=== PATIENT | male | born 1960 | race Caucasian/White ===

== ENCOUNTER 2018-01-04 12:39 | Inpatient (IN) | payer MEDICARE ==
[2018-01-04] VITALS (24 sets, daily range): BP systolic 54–154; BP diastolic 00–103
[~2018-01-04] VITALS: Ht 152.4 cm; Wt 77.6 kg
[2018-01-04] MEDS ORDERED: ADDERALL 20 MG20 M1 PO (12:49)
[2018-01-04] MEDS ORDERED: ABILIFY30 MG PO (12:49)
[2018-01-04] MEDS ORDERED: FISH OIL 1,001000 M2 PO (12:50)
[2018-01-04] MEDS ORDERED: GLIPIZIDE 10 MG10 MG PO (12:50)
[2018-01-04] MEDS ORDERED: METFORMIN HCL500 MG PO (12:51)
[2018-01-04 13:49] LABS: MCH 32.2 pg (26.0-34.0); MCHC 29.2 g/dL (28.0-37.0); MCV 110.2 fL (80.0-100.0); MPV 10.1 fl. (7.2-11.1); NUCLEATED RBCS 1 /100WBC; PLATELET COUNT* 423 thou/uL (150-400)
[2018-01-04 13:57] LABS: BE -23.9 mmol/L (-2 to +3); PCO2 33.7 mmHg (35.0-45.0); pH 6.905 (7.340-7.450)
[2018-01-04 13:58] LABS: HCO3 6.5 mmol/L (22.0-26.0); PO2 220.4 mmHg (75.0-100.0)
[2018-01-04 13:58] LABS: APTT 32.7 Seconds (25.0-31.3); INR 1.8; PROTIME 17.4 Seconds (9.20-11.50)
[2018-01-04 14:02] LABS: HEMOGLOBIN 4.8 gm/dL (14.0-18.0); WBC 67.2 thou/uL (4.0-11.0)
[2018-01-04 14:03] LABS: HEMATOCRIT 16.5 % (42.0-52.0)
[2018-01-04 14:10] LABS: CALCIUM 8.5 mg/dL (8.5-10.1)
[2018-01-04 14:11] LABS: POTASSIUM 5.7 mmol/L (3.5-5.1)
[2018-01-04 14:16] LABS: CK-MB MASS 4.2 ng/mL (<0.5-3.6); TOTAL BILIRUBIN 6.5 mg/dL (<0.1-1.0); TOTAL PROTEIN 6.4 g/dL (6.4-8.2)
[2018-01-04 14:21] LABS: TROPONIN-I LEVEL 2.11 ng/mL (<0.06)
[2018-01-04 14:31] LABS: ABSOLUTE EOSINOPHILS 0.7 thou/uL (0.0-0.7); ABSOLUTE LYMPHOCYTES 19.5 thou/uL (0.8-5.3); ABSOLUTE MONOCYTES 2.7 thou/uL (0.0-1.2); ABSOLUTE NEUTROPHILS 44.4 thou/uL (1.6-8.1); METAMYELOCYTES 10 %; MYELOCYTES 5 %; PLATELET ESTIMATE ADEQUATE
[2018-01-04 14:32] LABS: ACETAMINOPHEN < 2 ug/mL (10-30); ALCOHOL < 10 mg/dL (<10); HYPOCHROMASIA 1+; POLYCHROMASIA 1+; SALICYLATE < 2.8 mg/dL (2.8-20.0)
[2018-01-04 14:33] LABS: MACROCYTES 2+
[2018-01-04 14:36] LABS: ANISOCYTOSIS 2+
[2018-01-04 14:46] LABS: URINE BLOOD 3+ (Negative); URINE CLARITY CLOUDY; URINE COLOR BROWN; URINE GLUCOSE-RANDOM 3+ (Negative); URINE KETONES 1+ (Negative); URINE LEUKOCYTES-REFLEX NEGATIVE (Negative); URINE NITRITE-REFLEX NEGATIVE (Negative); URINE PROTEIN 2+ (Negative)
[2018-01-04 14:49] LABS: ICTOTEST (BILI CONFIRMATORY) Negative (Negative); URINE BILIRUBIN 1+ (Negative)
[2018-01-04 14:57] LABS: BACTERIA-REFLEX 1-9 Few /HPF (None Seen); SQUAMOUS 0-3 Few /LPF (0-3); URINE WBC-REFLEX 0-5 Rare /HPF (0-5)
[2018-01-04 14:58] LABS: AMORPHOUS URATES Many /LPF (None Seen); CASTS None Seen /LPF (None Seen)
[2018-01-04 15:48] LABS: BE -18.2 mmol/L (-2 to +3); PCO2 24.9 mmHg (35.0-45.0); PO2 > 488.8 mmHg (75.0-100.0); pH 7.158 (7.340-7.450)
[2018-01-04 15:49] LABS: HCO3 8.6 mmol/L (22.0-26.0)
--- NOTE | 2018-01-04 16:33 | EKG ---
[place] [address] ELECTROCARDIOGRAM REPORT Name: SAMIR BAIG Room: [address] IN [facility].#: [id number] Admission: 01/04/18 Attend Phys: Yuan Florian MD Discharge: Date of : 60 Report #: [id number] THIS REPORT FOR: //name// [facility] ED Test Date: 2018-01-04 Test Time: 13:57:23 Pat Name: SAMIR BAIG Department: Room: Gender: M [employer]: Willow POLANCO : 1960 Requested By: Vitaliy Amor Order Number: [id number] MD: Nate Velasco Measurements Intervals [place] Rate: 114 P: 74 [place]: 136 QRS: 11 QRSD: 76 T: 100 QT: 340 QTc: 469 Interpretive Statements Sinus tachycardia Extensive anterior infarct, acute (LAD) No previous ECG available for comparison Electronically Signed On 01-04-2018 16:33:04 CDT by Nate Velasco [email or web address] <ELECTRONICALLY SIGNED> By: Nate Velasco MD, [facility] 01/04/18 1633 1357 135 Nate Velasco MD, FACC /EPI
[2018-01-04 16:46] LABS: PHOSPHORUS* 7.3 mg/dL (2.5-4.9)
[2018-01-04 16:56] LABS: MAGNESIUM 2.3 mg/dL (1.8-2.4)
[2018-01-04 18:04] LABS: BE -20.4 mmol/L (-2 to +3); HCO3 7.5 mmol/L (22.0-26.0); PCO2 24.6 mmHg (35.0-45.0); PO2 251.8 mmHg (75.0-100.0)
[2018-01-04 18:16] LABS: CALCIUM 6.9 mg/dL (8.5-10.1)
[2018-01-04 18:19] LABS: POTASSIUM 3.9 mmol/L (3.5-5.1)
[2018-01-04 18:29] LABS: APTT 36.6 Seconds (25.0-31.3); INR 1.9; PROTIME 18.1 Seconds (9.20-11.50)
[2018-01-04 18:35] LABS: ALBUMIN 2.4 g/dL (3.4-5.0); MAGNESIUM 2.2 mg/dL (1.8-2.4); PHOSPHORUS* 7.6 mg/dL (2.5-4.9)
[2018-01-04 18:58] LABS: AMP/METHAMP POSITIVE (Negative); BARBITURATES Negative (Negative); BENZODIAZEPINES Negative (Negative); COCAINE Negative (Negative); METHADONE Negative (Negative); OPIATES Negative (Negative); PCP Negative (Negative); THC Negative (Negative)
[2018-01-04 20:48] LABS: MCHC 34.4 g/dL (28.0-37.0); MPV 8.9 fl. (7.2-11.1); RBC 1.72 mil/uL (4.50-6.00); RDW-CV 13.9 % (10.5-14.5)
[2018-01-04 20:51] LABS: MCV 92.9 fL (80.0-100.0); WBC 20.9 thou/uL (4.0-11.0)
[2018-01-04 20:57] LABS: HEMOGLOBIN 5.5 gm/dL (14.0-18.0)
[2018-01-04 21:02] LABS: CALCIUM 6.8 mg/dL (8.5-10.1); CREATININE 2.1 mg/dL (0.6-1.3)
[2018-01-04 21:05] LABS: ALBUMIN 2.3 g/dL (3.4-5.0); PHOSPHORUS* 2.6 mg/dL (2.5-4.9)
[2018-01-04 21:33] LABS: BE -5.2 mmol/L (-2 to +3); HCO3 17.6 mmol/L (22.0-26.0); PCO2 23.4 mmHg (35.0-45.0); pH 7.495 (7.340-7.450)
[2018-01-04 21:35] LABS: PO2 211.8 mmHg (75.0-100.0)
[2018-01-05] VITALS (41 sets, daily range): BP systolic 63–138; BP diastolic 38–80
[2018-01-05 02:44] LABS: MCH 31.4 pg (26.0-34.0); MCHC 34.8 g/dL (28.0-37.0); MCV 90.3 fL (80.0-100.0); MPV 8.7 fl. (7.2-11.1); RBC 1.9 mil/uL (4.50-6.00)
[2018-01-05 02:47] LABS: CALCIUM 6.7 mg/dL (8.5-10.1); CREATININE 2.3 mg/dL (0.6-1.3)
[2018-01-05 02:50] LABS: ANION GAP 11 mmol/L (7-16); BUN 79 mg/dL (7-18); CALCIUM 6.6 mg/dL (8.5-10.1); CHLORIDE 114 mmol/L (98-107); CO2 26 mmol/L (21-32); CREATININE 2.3 mg/dL (0.6-1.3); GLUCOSE 48 mg/dL (70-99); INR 1.8; PROTIME 17.8 Seconds (9.20-11.50); SODIUM 151 mmol/L (136-145)
[2018-01-05 02:51] LABS: ALBUMIN 2.4 g/dL (3.4-5.0); PHOSPHORUS* 0.5 mg/dL (2.5-4.9)
[2018-01-05 02:55] LABS: POTASSIUM 2.7 mmol/L (3.5-5.1)
[2018-01-05 03:03] LABS: ALBUMIN 2.2 g/dL (3.4-5.0); ALKALINE PHOSPHATASE 93 U/L (46-116); CHOLESTEROL 77 mg/dL (<200); HDL CHOLESTEROL 11 mg/dL (>40); HEMATOCRIT 17.1 % (42.0-52.0); LDL CHOLESTEROL 29 mg/dL (<100); MAGNESIUM 1.6 mg/dL (1.8-2.4); SGOT 468 U/L (15-37); SGPT 268 U/L (30-65); TOTAL BILIRUBIN 7.8 mg/dL (<0.1-1.0); TOTAL PROTEIN 4.7 g/dL (6.4-8.2); TRIGLYCERIDE 187 mg/dL (<150); VLDL 37 mg/dL (<40)
[2018-01-05 03:04] LABS: SERUM ASSESSMENT Clear
[2018-01-05 03:42] LABS: TROPONIN-I LEVEL 91.98 ng/mL (<0.06)
[2018-01-05 06:02] LABS: BE 0.1 mmol/L (-2 to +3); HCO3 21.8 mmol/L (22.0-26.0); PCO2 23.9 mmHg (35.0-45.0); pH 7.578 (7.340-7.450)
[2018-01-05 06:05] LABS: PO2 149.2 mmHg (75.0-100.0)
[2018-01-05 06:28] LABS: MCH 31.3 pg (26.0-34.0); MCHC 35.2 g/dL (28.0-37.0); MCV 88.9 fL (80.0-100.0); MPV 8.9 fl. (7.2-11.1); NUCLEATED RBCS 0 /100WBC; PLATELET COUNT* 80 thou/uL (150-400); RBC 1.97 mil/uL (4.50-6.00); RDW-CV 14.1 % (10.5-14.5); WBC 17.9 thou/uL (4.0-11.0)
[2018-01-05 06:32] LABS: HEMATOCRIT 17.5 % (42.0-52.0); HEMOGLOBIN 6.2 gm/dL (14.0-18.0)
[2018-01-05 07:07] LABS: HEPATITIS B SURFACE AG Negative (Negative)
[2018-01-05 07:21] LABS: ABSOLUTE LYMPHOCYTES 2.1 thou/uL (0.8-5.3); ABSOLUTE MONOCYTES 0.4 thou/uL (0.0-1.2); ABSOLUTE NEUTROPHILS 15.4 thou/uL (1.6-8.1); METAMYELOCYTES 1 %; PLATELET ESTIMATE DECREASED
[2018-01-05 08:03] LABS: PHOSPHORUS* 1.5 mg/dL (2.5-4.9)
[2018-01-05 08:36] LABS: APTT 39.4 Seconds (25.0-31.3); INR 1.7; PROTIME 16.6 Seconds (9.20-11.50)
[2018-01-05 08:50] LABS: ALBUMIN 2.2 g/dL (3.4-5.0); CALCIUM 6.3 mg/dL (8.5-10.1); CREATININE 2.3 mg/dL (0.6-1.3); DIRECT BILIRUBIN 3.2 mg/dL (<0.1-0.3); POTASSIUM 3.1 mmol/L (3.5-5.1); TOTAL BILIRUBIN 6.7 mg/dL (<0.1-1.0); TOTAL PROTEIN 4.5 g/dL (6.4-8.2)
[2018-01-05 08:54] LABS: BE -1.6 mmol/L (-2 to +3); HCO3 21.6 mmol/L (22.0-26.0); PCO2 29.1 mmHg (35.0-45.0); pH 7.488 (7.340-7.450)
[2018-01-05 08:55] LABS: PO2 168.3 mmHg (75.0-100.0)
[2018-01-05 09:20] LABS: TROPONIN-I LEVEL 103.48 ng/mL (<0.06)
--- NOTE | 2018-01-05 09:29 | CON ---
[address] [address] CONSULTATION Name: SAMIR BAIG Room: [address] IN M.R.#: [id number] Admission: 01/04/18 Attend Phys: Yuan Florian MD Discharge: Date of : 60 Report #: [id number] THIS REPORT FOR: //name// CC: Yuan Valerio MD DATE OF SERVICE: 01/04/2018 PULMONARY CONSULTATION ATTENDING PHYSICIAN: Yuan Florian MD INDICATION FOR CONSULTATION: Acute respiratory failure, metabolic acidosis, multisystem failure. PRIMARY CARE PHYSICIAN: Edith Valerio MD HISTORY OF PRESENT ILLNESS: The patient is a 57-year-old male, supposedly a nonsmoker, who comes in with altered mental status and multisystem failure. The patient's history is he was in his current healthy state up until Sunday of this week. He had a spider bite and then, he went to see, I think Dr. Valerio, his primary care physician. He was placed on some antibiotics and prednisone. He has felt worse over the last couple of days and a [id number] came in and said that he was more short of breath and not eating or drinking anything. The patient's blood sugars were up to 500. He was jaundiced. He was hypotensive and had some agonal respirations. Dr. Amor emergently intubated him, placed a central line, gave him fluids and is going to get some bicarbonate. His blood sugar is 500, his hemoglobin is 4 and white count of 66,000. He had some low-grade fevers at home. Denied any chills or sweats. There is no cough with purulent sputum as far as I could tell or at least from what history was obtained. No bloody stools were noted and the patient's INR and PTT are elevated. He denies any chest pain. Troponins are mildly elevated. OTHER PAST MEDICAL HISTORY: Positive for diabetes mellitus. He may have some obstructive sleep apnea or bipolar disorder. ALLERGIES: INCLUDED PENICILLIN AND HYDROCODONE FROM VICODIN. OUTPATIENT MEDICATIONS: Included amphetamine or Adderall 20 mg p.o. b.i.d. aripiprazole or Ability 30 mg b.i.d., glipizide, Glucotrol 10 mg tablets once daily and metformin 500 mg b.i.d. FAMILY HISTORY: Negative for [place] [address] CONSULTATION Name: JOVANNISAMIR Da Silva Room: [address] IN [facility]#: [id number] Admission: 01/04/18 Attend Phys: Yuan Florian MD Discharge: Date of : 60 Report #: [id number] SOCIAL HISTORY: Very light smoker or nonsmoker in the past. Denies any alcohol or illicit drug use. Urine drug screen is pending. REVIEW OF SYSTEMS: A 14-point review of systems was reviewed and negative except for pertinent positives noted in the HPI. PHYSICAL EXAMINATION: GENERAL: Very acutely ill, frail appearing, jaundiced 57-year-old male, in moderate distress. VITAL SIGNS: He is 5 feet 9 inches tall, weighs 72 kilograms or 158 pounds, BMI is 24. Again, he is diffusely jaundiced. He has some scleral icterus. His blood pressure is 90/50, heart rate was 104-108, respirations were at least agonal when he was admitted and then now on the ventilator, he is on a rate of 20 with a backup rate of 20. He was afebrile with a temperature of 36.1. Saturation currently is 95% on 100% on the ventilator. HEENT: Scleral icterus is noted. He is orally intubated. He has an OG tube in place. He has a left IJ triple lumen catheter in place. NECK: Otherwise supple, without nodes. No meningeal signs. CHEST: Clear, without wheeze or rhonchi. CARDIOVASCULAR: Shows sinus tachycardia with heart rate of 108. ABDOMEN: Liver appears slightly enlarged with a liver edge noted, does not appear nodular to me. No ascites noted in his abdomen. EXTREMITIES: Peripheral pulses are 1-2+, somewhat weak and thready, but they are present though. He again is diffusely jaundiced in his skin. No clubbing or edema is noted. He was moving all of his extremities when he was admitted to the hospital before he was sedated and intubated. LABORATORY DATA: Hemoglobin is 4.8, hematocrit was 16, white count 67,200, platelet count is 423,000. He has about 86 neutrophils, absolute neutrophil count is markedly increased. INR is 1.8 with a protime of 17. Sodium was 130, potassium was 4.2, blood sugar was 500. BUN and creatinine are pending. LFTs are all pending at least at time of dictation. Chest x-ray is pending. He had a lumbar spine film on 01/02/2012, shows 6 views are fine, non-rib bearing lumbar type vertebral bodies. No compression fractures or listhesis was noted. Today's chest x-ray and central line placement are pending, as is endotracheal tube. ABGs on the ventilator were noted, pH was 6.9, pO2 was 20, pCO2 was 33, bicarbonate was 6 with a sat of 95%. Carboxyhemoglobin was 1.6, could be related to cigarette smoking, that was on 100%, 5, 50, 20 and 5 and that is what the blood gas was drawn ____ 130. We have increased his rate to 22 and his tidal volume to 600 at this time. He will be given some bicarbonate. IMPRESSION: 1. Multisystem failure, etiology unclear. 2. Diabetes mellitus with hyperglycemia, nonketotic hyperosmolar coma as well as diabetic ketoacidosis. 3. Jaundice, [place] [address] CONSULTATION Name: SAMIR BAIG Room: [address] IN [facility].#: [id number] Admission: 01/04/18 Attend Phys: Yuan Florian MD Discharge: Date of : 60 Report #: [id number] 4. Renal insufficiency and hypotension, probably related to sepsis syndrome. 5. Metabolic acidosis, multifactorial. 6. Anemia, seems more acute than chronic. No evidence of hemolysis at least at this time, awaiting other studies to come back. The MCV is 110, which is elevated. PLAN: We will await studies, give fluids, give some bicarbonate. We have increased the ventilator rate and minute ventilation, would like to get his pH above 7.20 to see if that will help with his acidosis and also with his cardiopulmonary status. Prognosis is extremely guarded at this time. He has multisystem failure, may need some transfusion, we will talk with primary care about that and we will continue followup labs on him. Prognosis quite guarded. I have not seen any family around to talk this over with yet. This has been a 38-minute critical care consult. <ELECTRONICALLY SIGNED> By: Terrance Blanchard MD 01/05/18 0929 1433 2022Antromi Blanchard MD /nt
--- NOTE | 2018-01-05 11:30 | 2DMMODE ---
[place] [address] 2 D/M-MODE ECHOCARDIOGRAM Name: SAMIR BAIG Room: [address] IN [facility]#: [id number] Admission: 01/04/18 Attend Phys: Yuan Florian, Discharge: Date of : 60 Date of Service: 01/05/18 1129 Report #: [id number] THIS REPORT FOR: //name// APPROVED REPORT Study performed: 01/04/2018 16:57:50 EXAM: Comprehensive 2D, Doppler, and color-flow Echocardiogram Patient Location: In-Patient Room #: 006 Status: routine BSA: 1.83 HR: 118 bpm BP: 113/68 mmHg Rhythm: NSR Other Information Study Quality: Good Indications Acute VT 2D Dimensions IVSd: 9.99 (7-11mm) LVOT Diam: 20.64 (18-24mm) LVDd: 45.00 mm PWd: 8.62 (7-11mm) Ascending Ao: 34.26 (22-36mm) LVDs: 33.65 (25-40mm) Aortic Root: 31.01 mm Volumes Left Atrial Volume (Systole) LA ESV Index: 38.10 mL/m2 Aortic Valve AoV Peak Dipak.: 1.11 m/s AO Peak Gr.: 4.91 mmHg LVOT Max P.70 mmHg AO Mean Gr.: 2.65 mmHg LVOT Mean P.19 mmHg LVOT Max V: 0.82 m/s AO V2 VTI: 13.99 cm LVOT Mean V: 0.49 m/s SHAHAB (VTI): 2.75 cm2 LVOT V1 VTI: 11.53 cm Mitral Valve E/A Ratio: 2.61 MV Decel. Time: 82.02 ms MV E Max Dipak.: 1.24 m/[place] [address] 2 D/M-MODE ECHOCARDIOGRAM Name: SAMIR BAIG Room: [address] IN [facility].#: [id number] Admission: 01/04/18 Attend Phys: Yuan Florian, Discharge: Date of : 60 Date of Service: 01/05/18 1129 Report #: [id number] MV PHT: 23.78 ms MVA (PHT): 9.25 cm2 TDI E/Lateral E': 13.78 E/Medial E': 13.78 Medial E' Dipak.: 0.09 m/s Lateral E' Dipak.: 0.09 m/s Pulmonary Valve PV Peak Dipak.: 0.83 m/s PV Peak Gr.: 2.72 mmHg Tricuspid Valve RAP Estimate: 5.00 mmHg TR Peak Gr.: 34.90 mmHg RVSP: 39.90 mmHg PA Pressure: 39.90 mmHg Left Ventricle The left ventricle is normal size. Regional wall motion abnormalities are noted. severe hypokinesis noted of the mid and distal anteroseptal wall and apex There is normal left ventricular wall thickness. Left ventricular systolic function is moderately decreased. LVEF is 30-35%. Grade IV - fixed restrictive diastolic dysfunction. Right Ventricle The right ventricle is normal size. The right ventricular systolic function is normal. Atria Left atrium is mildly dilated. The right atrium size is normal. Aortic Valve The aortic valve is normal in structure. No aortic regurgitation is present. There is no aortic valvular stenosis. Mitral Valve The mitral valve is normal in structure. Moderate mitral regurgitation. No evidence of mitral valve stenosis. Tricuspid Valve The tricuspid valve is normal in structure. Mild tricuspid regurgitation estimated pa pressure 45 mm Hg Pulmonic Valve The pulmonary valve is normal in structure[place] [address] 2 D/M-MODE ECHOCARDIOGRAM Name: SAMIR BAIG Room: [address]#: [id number] Admission: 01/04/18 Attend Phys: Yuan Florian, Discharge: Date of : 60 Date of Service: 01/05/18 1129 Report #: [id number] regurgitation. Great Vessels The aortic root is normal in size. IVC is normal in size and collapses with >50% inspiration Pericardium Mild circumferential pericardial effusion. <Conclusion> LVEF is 30-35%. Regional wall motion abnormalities are noted. severe hypokinesis noted of the mid and distal anteroseptal wall and apex Left atrium is mildly dilated. Moderate mitral regurgitation. Mild tricuspid regurgitation estimated pa pressure 45 mm Hg <ELECTRONICALLY SIGNED> By: Nate Velasco MD, [facility] 01/05/18 1129 1129 1129 Nate Velasco MD, FACC /INF
--- NOTE | 2018-01-05 11:33 | CON ---
[address] [address] CONSULTATION Name: SAMIR BAIG Room: [address] IN .R.#: [id number] Admission: 01/04/18 Attend Phys: Yuna Florian MD Discharge: Date of : 60 Report #: [id number] THIS REPORT FOR: //name// CC: Yuan Valerio DATE OF SERVICE: 01/04/2018 HEMATOLOGY CONSULTATION NOTE PRIMARY CARE PHYSICIAN: Unknown. REASON FOR CONSULTATION: Hemolysis with severe anemia and leukocytosis, currently in ICU, intubated and on pressors. HISTORY OF PRESENT ILLNESS: The patient is a 57-year-old gentleman with history of diabetes, presented to the Emergency Room with lethargy and worsening confusion and hyperbilirubinemia, jaundice for the last 5 days. Per reports, the patient had a spider bite, which prompted him to come to the Emergency Room a week ago, was initiated on some type of antibiotic. The patient currently is intubated in the ICU with unresponsive. No family at bedside. Most of the information is obtained from patient, review records and also discussing with the nurse today. The patient is currently on Levophed and he was found to have a hemoglobin of 4.8 with the high bilirubin. He has received 2 units of packed RBC. Started on empiric antibiotics, steroids and also received at least 3-4 liters of IV fluids so far. He does have troponin leak with elevated leukocytosis. He is on empiric antibiotics as mentioned. Infectious Disease specialist is on case. The patient is making urine, which is dark in color with bilirubinemia because of his jaundice with high bilirubin pigment. He is also acidotic and on the vent. The patient is currently very unresponsive and not even responding to call. He does not have any corneal reflexes. His pupils are constricted and fixed. The patient is currently not on sedation per the nurse. He was intubated earlier this afternoon. REVIEW OF SYSTEMS: A 12-point review of system was reviewed, which was essentially limited due to the patient's neurological status. PAST MEDICAL HISTORY: Except for diabetes, no significant ____ past medical history with a recent spider bite roughly few weeks ago on his right anterior chest wall. ALLERGIES: INCLUDE HYDROCODONE AND PENICILLIN. CURRENT MEDICATIONS: At home include amphetamine, aripiprazole, fish oil capsule glipizide, and metformin. [place] medications [place] [address] CONSULTATION Name: JOVANNISAMIR Rekha Room: [address] IN [facility]#: [id number] Admission: 01/04/18 Attend Phys: Yuan Florian MD Discharge: Date of : 60 Report #: [id number] include levofloxacin, vancomycin, metronidazole, doxycycline, bicarbonate drip and Protonix, Solu-Medrol. He is on Humulin insulin drip and cefepime, Zofran. He is on vasopressin and fentanyl and earlier on Levophed too. 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 PAST SURGICAL HISTORY: Unobtainable at this point. LABORATORY DATA: Recent labs include sodium 145, potassium 3.9, chloride 105, bicarbonate 10, anion gap 30, BUN 38, creatinine 2.0, glucose 438, calcium 6.9, phosphorus 7.6, magnesium 2.2, and albumin 2.4. Total bilirubin is 6.5, AST 95, ALT 68, alkaline phosphatase 151, creatine kinase 559, troponin is 2.11, proBNP 2486, total protein 6.4, albumin 3.0. White blood cell count is 67.2, hemoglobin was 4.8, hematocrit 16.5, MCV 110, and platelets are 423 with absolute neutrophil count of 44,000 with lymphocytes of 19.5, monocytes 2.7 with nucleated red blood cells seen with red schistocytes seen. INR is 1.8. PT 17.4, PTT 32.7, and fibrinogen is 416. Urinalysis showed 2+ protein with ketones with 3+ blood with bilirubin positivity. Many bacteria were also seen. Urine tox screen was positive for methamphetamine. Viral and bacterial ID workup is currently underway. Pap smear was sent for pathologist review too. MICROBIOLOGY: Blood cultures and sputum cultures were currently sent. PHYSICAL EXAMINATION: VITAL SIGNS: Temperature of 34.8, heart rate 152, respiratory rate 26, blood pressure is 146/90, and oxygenation 100% on vent with 100% FiO2. GENERAL EXAMINATION: The patient currently is intubated, not on sedation, but not responding. HEENT: The patient does not even have corneal reflexes. Pupils are fixed and constricted. Severe icterus present. Poor dentition. NECK: Supple, with no lymphadenopathy. LUNGS: Decreased breath sounds. CARDIAC EXAMINATION: Tachycardic. ABDOMEN: Soft, nontender. Bowel sounds present. EXTREMITIES: The patient does have this ulcerated lesion on the right anterior chest wall, which is the spider bite apparently. ASSESSMENT AND PLAN: The patient is a 57-year-old gentleman with past medical history of diabetes, presented with a 1-week history of spider bite. Now presents and currently admitted, intubated in the ICU with hypotension with hyperbilirubinemia, most likely conjugated secondary hemolysis with low hemoglobin. Anemia. Currently with his spider bite and hemolysis were most [facility] [address] [place] [address] CONSULTATION Name: SAMIR BAIG Room: [address] IN M.R.#: [id number] Admission: 01/04/18 Attend Phys: Yuan Florian MD Discharge: Date of : 60 Report #: [id number] likely concerning for both intravascular and extravascular hemolysis. Would recommend supporting him with transfusions and also fluid support with transfusions and also add folic acid. I would arrange for a direct bilirubin level and also monitor LDH levels and haptoglobin serially. Would also check DIC labs as spider bite can also be the result in DIC. As of now, the patient does not have a full concern for florid DIC at least based on the labs. He does have some evidence of renal insufficiency with hypotension and I would recommend fluids. A peripheral smear review did not show any obvious evidence of schistocytes, but did have severe spherocytes. We will check a Carmelo test too. We will treat supportively with folic acid. The patient's prognosis is very poor and would recommend supporting with transfusions and continue supportive care. I do not feel platelet count has been adequate and with the red schistocytes and with the setup of spider bite, it is not concerning for thrombotic thrombocytopenic purpura. I will recommend labs at least checked every 4-6 hourly and closely support him. Please contact us with any questions or concerns. <ELECTRONICALLY SIGNED> By: Vannesa Boyce MD 01/05/18 1133 [id number] rene Morales
[2018-01-05 11:36] LABS: ABSOLUTE BASOPHILS 0.1 thou/uL (0.0-0.2); ABSOLUTE EOSINOPHILS 0.1 thou/uL (0.0-0.7); ABSOLUTE LYMPHOCYTES 1.2 thou/uL (0.8-5.3); ABSOLUTE MONOCYTES 1.3 thou/uL (0.0-1.2); ABSOLUTE NEUTROPHILS 22.3 thou/uL (1.6-8.1); BASOPHILS 0.3 %; EOSINOPHILS 0.2 %; HEMATOCRIT 22.6 % (42.0-52.0); HEMOGLOBIN 7.6 gm/dL (14.0-18.0); LYMPHOCYTES 4.8 %; MCH 30.9 pg (26.0-34.0); MCHC 33.8 g/dL (28.0-37.0); MCV 91.3 fL (80.0-100.0); MONOCYTES 5.1 %; MPV 8.9 fl. (7.2-11.1); NUCLEATED RBCS 0 /100WBC; PLATELET COUNT* 85 thou/uL (150-400); POLYS 89.6 %; RBC 2.47 mil/uL (4.50-6.00); RDW-CV 14.5 % (10.5-14.5); WBC 24.9 thou/uL (4.0-11.0)
--- NOTE | 2018-01-05 11:37 | EKG ---
[place] [address] ELECTROCARDIOGRAM REPORT Name: SAMIR BAIG Room: [address] ADM IN M.R.#: [id number] Admission: 01/04/18 Attend Phys: Yuan Florian MD Discharge: Date of : 60 Report #: [id number] THIS REPORT FOR: //name// [facility] Test Date: 2018-01-05 Test Time: 07:44:55 Pat Name: SAMIR BAIG Department: Room: [address] Gender: M [employer] Supervisor: : 1960 Requested By: Nate Velasco Order Number: [id number] Reading MD: Nate Velasco Measurements Intervals [place] Rate: 116 P: 75 UT: 120 QRS: 9 QRSD: 82 T: 86 QT: 332 QTc: 462 Interpretive Statements Sinus tachycardia Probable anteroseptal infarct Compared to ECG 01/04/2018 13:57:23 myocardial injury pattern is less prominent Electronically Signed On 01-05-2018 11:37:28 CDT by Nate Velasco [email or web address] <ELECTRONICALLY SIGNED> By: Nate Velasco MD, [facility] 01/05/18 1137 Nate Velasco MD, [facility] /EPI
[2018-01-05 11:59] LABS: APTT 38.4 Seconds (25.0-31.3); FIBRINOGEN 162 mg/dL (200-340); INR 1.7; PROTIME 16.3 Seconds (9.20-11.50)
[2018-01-05 12:12] LABS: CALCIUM 6.3 mg/dL (8.5-10.1); CREATININE 2.4 mg/dL (0.6-1.3)
[2018-01-05 12:14] LABS: POTASSIUM 4.3 mmol/L (3.5-5.1)
[2018-01-05 12:22] LABS: MAGNESIUM 1.6 mg/dL (1.8-2.4); PHOSPHORUS* 2.8 mg/dL (2.5-4.9)
[2018-01-05 17:58] LABS: ABSOLUTE BASOPHILS 0.1 thou/uL (0.0-0.2); ABSOLUTE LYMPHOCYTES 0.8 thou/uL (0.8-5.3); ABSOLUTE MONOCYTES 0.6 thou/uL (0.0-1.2); ABSOLUTE NEUTROPHILS 22.6 thou/uL (1.6-8.1); BASOPHILS 0.2 %; EOSINOPHILS 0.1 %; HEMOGLOBIN 8.4 gm/dL (14.0-18.0); LYMPHOCYTES 3.4 %; MCHC 33.5 g/dL (28.0-37.0); MCV 89.4 fL (80.0-100.0); MONOCYTES 2.4 %; MPV 9.4 fl. (7.2-11.1); NUCLEATED RBCS 0 /100WBC; PLATELET COUNT* 84 thou/uL (150-400); POLYS 93.9 %; RBC 2.79 mil/uL (4.50-6.00); RDW-CV 15.5 % (10.5-14.5); WBC 24.1 thou/uL (4.0-11.0)
[2018-01-05 18:10] LABS: APTT 38.2 Seconds (25.0-31.3); INR 1.9
[2018-01-05 18:20] LABS: ALBUMIN 2.2 g/dL (3.4-5.0); CALCIUM 6.6 mg/dL (8.5-10.1); CREATININE 2.6 mg/dL (0.6-1.3); DIRECT BILIRUBIN 2.1 mg/dL (<0.1-0.3); TOTAL BILIRUBIN 4.2 mg/dL (<0.1-1.0); TOTAL PROTEIN 4.9 g/dL (6.4-8.2)
[2018-01-06] VITALS (21 sets, daily range): BP systolic 81–1110; BP diastolic 49–77
[2018-01-06 00:56] LABS: ABSOLUTE BASOPHILS 0.1 thou/uL (0.0-0.2); ABSOLUTE LYMPHOCYTES 0.8 thou/uL (0.8-5.3); ABSOLUTE MONOCYTES 1.1 thou/uL (0.0-1.2); ABSOLUTE NEUTROPHILS 23.9 thou/uL (1.6-8.1); BASOPHILS 0.3 %; EOSINOPHILS 0.1 %; HEMATOCRIT 25.3 % (42.0-52.0); HEMOGLOBIN 8.6 gm/dL (14.0-18.0); MCH 30.2 pg (26.0-34.0); MCHC 33.9 g/dL (28.0-37.0); MONOCYTES 4.2 %; MPV 9.3 fl. (7.2-11.1); NUCLEATED RBCS 0 /100WBC; PLATELET COUNT* 58 thou/uL (150-400); POLYS 92.4 %; RBC 2.84 mil/uL (4.50-6.00); RDW-CV 15.8 % (10.5-14.5); WBC 25.8 thou/uL (4.0-11.0)
[2018-01-06 01:06] LABS: APTT 36.2 Seconds (25.0-31.3); PROTIME 19.5 Seconds (9.20-11.50)
[2018-01-06 01:49] LABS: POTASSIUM 3.7 mmol/L (3.5-5.1)
[2018-01-06 01:50] LABS: ALBUMIN 2.3 g/dL (3.4-5.0); CALCIUM 6.1 mg/dL (8.5-10.1); CREATININE 2.4 mg/dL (0.6-1.3); DIRECT BILIRUBIN 1.9 mg/dL (<0.1-0.3); TOTAL BILIRUBIN 3.5 mg/dL (<0.1-1.0); TOTAL PROTEIN 4.8 g/dL (6.4-8.2)
[2018-01-06 02:13] LABS: MAGNESIUM 1.9 mg/dL (1.8-2.4)
[2018-01-06 02:16] LABS: TROPONIN-I LEVEL 26.46 ng/mL (<0.06)
[2018-01-06 04:22] LABS: BE -5.1 mmol/L (-2 to +3); HCO3 19.5 mmol/L (22.0-26.0); PCO2 34.2 mmHg (35.0-45.0); pH 7.373 (7.340-7.450)
[2018-01-06 04:25] LABS: PO2 161.3 mmHg (75.0-100.0)
[2018-01-06 07:54] LABS: ABSOLUTE MONOCYTES 0.7 thou/uL (0.0-1.2); ABSOLUTE NEUTROPHILS 26.2 thou/uL (1.6-8.1); BASOPHILS 0.1 %; HEMATOCRIT 27.5 % (42.0-52.0); HEMOGLOBIN 9.2 gm/dL (14.0-18.0); LYMPHOCYTES 3.6 %; MCH 30.2 pg (26.0-34.0); MCHC 33.6 g/dL (28.0-37.0); MONOCYTES 2.6 %; MPV 9.4 fl. (7.2-11.1); NUCLEATED RBCS 1 /100WBC; PLATELET COUNT* 72 thou/uL (150-400); POLYS 93.7 %; RBC 3.06 mil/uL (4.50-6.00); RDW-CV 16.3 % (10.5-14.5)
[2018-01-06 08:09] LABS: APTT 46.2 Seconds (25.0-31.3); PROTIME 19.7 Seconds (9.20-11.50)
[2018-01-06 08:19] LABS: ALBUMIN 2.4 g/dL (3.4-5.0); CALCIUM 6.5 mg/dL (8.5-10.1); CREATININE 2.4 mg/dL (0.6-1.3); DIRECT BILIRUBIN 1.7 mg/dL (<0.1-0.3); POTASSIUM 3.1 mmol/L (3.5-5.1); TOTAL BILIRUBIN 3.4 mg/dL (<0.1-1.0); TOTAL PROTEIN 5.3 g/dL (6.4-8.2)
[2018-01-06 13:20] LABS: PHOSPHORUS* 2.8 mg/dL (2.5-4.9)
[2018-01-06 16:53] LABS: HEMATOCRIT 28.6 % (42.0-52.0); HEMOGLOBIN 9.5 gm/dL (14.0-18.0); MCH 29.8 pg (26.0-34.0); MCHC 33.2 g/dL (28.0-37.0); MCV 89.9 fL (80.0-100.0); NUCLEATED RBCS 1 /100WBC; PLATELET COUNT* 69 thou/uL (150-400); RBC 3.18 mil/uL (4.50-6.00); RDW-CV 16.6 % (10.5-14.5); WBC 31.2 thou/uL (4.0-11.0)
[2018-01-06 17:04] LABS: APTT 44.1 Seconds (25.0-31.3); PROTIME 19.5 Seconds (9.20-11.50)
[2018-01-06 17:14] LABS: ALBUMIN 2.4 g/dL (3.4-5.0); CALCIUM 7.1 mg/dL (8.5-10.1); CREATININE 2.2 mg/dL (0.6-1.3); DIRECT BILIRUBIN 1.5 mg/dL (<0.1-0.3); PHOSPHORUS* 3.1 mg/dL (2.5-4.9); POTASSIUM 3.3 mmol/L (3.5-5.1); TOTAL BILIRUBIN 2.7 mg/dL (<0.1-1.0); TOTAL PROTEIN 5.3 g/dL (6.4-8.2)
[2018-01-06 17:23] LABS: ABSOLUTE LYMPHOCYTES 2.2 thou/uL (0.8-5.3); ANISOCYTOSIS 1+; PLATELET ESTIMATE DECREASED
[2018-01-06 17:24] LABS: OVALOCYTES Occasional
[2018-01-06 17:26] LABS: POLYCHROMASIA Occasional
[2018-01-06 17:27] LABS: MICROCYTES Occasional
[2018-01-07] VITALS (89 sets, daily range): BP systolic 78–114; BP diastolic 45–72
[2018-01-07 04:51] LABS: ABSOLUTE LYMPHOCYTES 0.6 thou/uL (0.8-5.3); ABSOLUTE MONOCYTES 0.6 thou/uL (0.0-1.2); ABSOLUTE NEUTROPHILS 24.2 thou/uL (1.6-8.1); BASOPHILS 0.1 %; HEMATOCRIT 25.9 % (42.0-52.0); HEMOGLOBIN 8.4 gm/dL (14.0-18.0); LYMPHOCYTES 2.2 %; MCH 29.7 pg (26.0-34.0); MCHC 32.4 g/dL (28.0-37.0); MCV 91.6 fL (80.0-100.0); MONOCYTES 2.3 %; NUCLEATED RBCS 1 /100WBC; POLYS 95.4 %; RBC 2.82 mil/uL (4.50-6.00); RDW-CV 17.1 % (10.5-14.5); WBC 25.4 thou/uL (4.0-11.0)
[2018-01-07 05:10] LABS: PLATELET COUNT* 47 thou/uL (150-400)
[2018-01-07 05:19] LABS: ALBUMIN 2.8 g/dL (3.4-5.0); CALCIUM 6.9 mg/dL (8.5-10.1); CREATININE 2.2 mg/dL (0.6-1.3); TOTAL BILIRUBIN 2.6 mg/dL (<0.1-1.0)
[2018-01-07 05:34] LABS: POTASSIUM 4.9 mmol/L (3.5-5.1)
[2018-01-07 05:36] LABS: TROPONIN-I LEVEL 10.9 ng/mL (<0.06)
[2018-01-07 05:50] LABS: HCO3 14.9 mmol/L (22.0-26.0); PCO2 29.5 mmHg (35.0-45.0); pH 7.321 (7.340-7.450)
[2018-01-07 05:52] LABS: PO2 127.1 mmHg (75.0-100.0)
[2018-01-07 06:03] LABS: APTT 45.2 Seconds (25.0-31.3); INR 1.8; PROTIME 17.7 Seconds (9.20-11.50)
[2018-01-07 06:05] LABS: FIBRINOGEN 95 mg/dL (200-340)
--- NOTE | 2018-01-07 07:18 | CON ---
[address] [address] CONSULTATION Name: JOVANNISAMIR Rekha Room: [address] IN .R.#: [id number] Admission: 01/04/18 Attend Phys: Yuan Florian MD Discharge: Date of : 60 Report #: [id number] THIS REPORT FOR: //name// CC: Yuan Valerio DATE OF SERVICE: 01/04/2018 Infectious Disease Consultation DATE OF ADMISSION: 01/04/2018 ATTENDING PHYSICIAN: Yuan Florian MD REASON FOR EVALUATION: Septic shock, multiorgan dysfunction. HISTORY OF PRESENT ILLNESS: Chart reviewed, patient examined. The patient is 57-year-old with diabetes mellitus, apparently was fairly well controlled on metformin, who was evaluated a few days ago with complaints of suspected spider bite, a concern about specifically brown recluse. He was treated with systemic antibiotics, as well as corticosteroids. Over the course of next 3-4 days, it developed fairly profound anorexia with nausea, emesis. History is all obtained from his family and in the chart. He was progressively more encephalopathic. Per family, he had fallen at least 3 times. On evaluation, he was found to have diabetic ketoacidosis with marked lactic acidemia, markedly elevated white count of 67,000, appearance of hemolytic anemia with hemoglobin of 4, peripheral schistocytes, although he had no thrombocytopenia. He did have mildly elevated liver functions as well. He has creatinine around 2. Other than the potential spider bite, family said his house is in disrepair. He has gotten multiple cats and they are primarily inside that he takes care of, also has . He rarely leaves the house other than grocery shopping. Not clear if he drinks alcohol, they believe not. He does have poor dentition as well. Currently, he is on multiple pressors. He is intubated on mechanical ventilatory support. ALLERGIES: Listed to PENICILLINS and HYDROCODONE. CURRENT MEDICATIONS: Include levofloxacin, vancomycin, pantoprazole, methylprednisolone 62.5 q. 8, cefepime, fentanyl as needed, insulin. He is on norepinephrine as well, and as I believe vasopressin. PAST MEDICAL HISTORY: Notable for the diabetes mellitus, history of bipolar. SOCIAL HISTORY: I do not believe there is any ethanol use. No tobacco use. FAMILY HISTORY: [place] [address] CONSULTATION Name: SAMIR BAIG Room: [address]#: [id number] Admission: 01/04/18 Attend Phys: Yuan Florian MD Discharge: Date of : 60 Report #: [id number] REVIEW OF SYSTEMS: Not obtainable. PHYSICAL EXAMINATION: GENERAL: He is jaundiced. He is lying supine. He is intubated. He is nonresponsive, appears chronically ill and undernourished. VITAL SIGNS: He is hypothermic, , blood pressure 143/89. HEENT: He has poor dentition. NECK: Supple. LUNGS: Somewhat diminished, otherwise clear. HEART: Regular, is tachycardic. I do not appreciate murmur. ABDOMEN: Soft. There are no overt peritoneal signs. GENITOURINARY: Deferred. RECTAL: Deferred. DATA: ABGs post-intubation: FiO2 of 100%, pH 7.6905, pCO2 of 33.7, pO2 of 220.4. PT of 17.4, INR of 1.8. Electrolytes: Sodium 133, potassium 5.7, chloride 99, bicarbonate is 8, anion gap of 26, BUN and creatinine 68 and 2.0, glucose of 543. AST of 95, ALT of 68, alkaline phosphatase of 151. Total bilirubin of 6.5, albumin of 3.0, total protein 6.4. Estimated GFR of 35. Lactic acid initially 18.1, repeat was 20. CBC: White count of 67.2, hemoglobin of 4.8, hematocrit of 16.5, platelet count of 423. Differential showed 2% bands, did have interestingly absolute lymphocytosis of 19,500. There is question of some possible lymphocytic hematological abnormality. Did have occasional schistocytes. Chest x-ray: Generally unremarkable with no acute process. Urinalysis: 0-[address] of the head: No acute process. CT of the chest: Mild bibasilar consolidations. CT abdomen and pelvis interestingly showed apparent right colon wall thickening with question of colitis, certainly would be concern. Fibrinogen 416 and lacking some consumption, ammonia 143, LDH of 912, amylase and lipase of 4 and 82. Troponin elevated at 20.22. ASSESSMENT: Septic shock, unclear etiology, certainly raises question of intra-abdominal process given the right colonic involvement without necessarily left involvement. There is question of ischemic issue with superior mesenteric artery, I believe, certainly raises interesting question about a possible Clostridium, which is sometimes associated with hemolytic anemia, toxin mediated, seeing the marked elevation of white count. Other considerations include spider bite envenomation leading to the multiorgan dysfunction as well. Agree with empiric broad spectrum therapy. I typically inclined to think he has exposure history other than the cats, perhaps a spider. We will begin empiric treatment with doxycycline for potential unusual organisms. Overall, his [address] [place] [address] CONSULTATION Name: SAMIR BAIG Room: [address] IN [facility]#: [id number] Admission: 01/04/18 Attend Phys: Yuan Florian MD Discharge: Date of : 60 Report #: [id number] prognosis is quite guarded. Did discuss with the patient's family. We will follow and adjust therapy as dictated. <ELECTRONICALLY SIGNED> By: Checo Barrios MD 01/07/18717 1846 0315Jodyana Barrios MD /nt
--- NOTE | 2018-01-07 07:19 | CON ---
[address] [address] CONSULTATION Name: JOVANNISAMIR Rekha Room: [address] IN .R.#: [id number] Admission: 01/04/18 Attend Phys: Yuan Florian MD Discharge: Date of : 60 Report #: [id number] THIS REPORT FOR: //name// CC: Yuan Valerio MD DATE OF SERVICE: 01/04/2018 HISTORY OF PRESENT ILLNESS: The patient is a 57-year-old white male who I was asked to see in the hospital today after he was noted to have a myocardial infarction. History is obtained from the mlysslv-ym-fdu who is present. The patient is currently intubated and sedated. According to the tlimjyw-zk-wmv, the patient suffered a spider bite last week. He started not feeling well a week ago. He had no appetite, was very weak. Five days ago, he went to see his primary care physician and was placed on steroids. He continues to feel weak and fatigued. He has had no appetite. His finally called her brother and stated that he was not doing well. When the jdbgosa-lr-bub arrived, he called EMS to bring him to the hospital. On arrival, the patient was confused. He lost stool. In the Emergency Room, the patient was intubated for airway protection. He was placed on pressors and placed in the ICU. I was asked to see him for further evaluation and treatment. There has been no history of chest pain. The patient has been short of breath. There has been no syncope. Family denies any fevers. PAST MEDICAL HISTORY: Significant for he is diabetic. He is on metformin. He has history of manic depressive illness, is followed by Psychiatry. He had a suicide attempt years ago. He is on medications. FAMILY HISTORY: Negative for heart disease. SOCIAL HISTORY: He is . His is actually bedridden. He is her caregiver. He is on disability because of his manic depressive illness. They live in [place]. 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 No smoking or alcohol abuse. REVIEW OF SYSTEMS: He has had no history of stroke, asthma, peptic ulcer disease, liver disease, kidney disease, cancer, chronic skin condition. PHYSICAL EXAMINATION: GENERAL: Revealed a middle-aged male who is on the ventilator. He is sedated. VITAL SIGNS: The patient had a blood pressure of only 90s, pulse 110. He is afebrile. HEENT: He appeared icteric, conjunctivae pink. [place] [address] CONSULTATION Name: SAMIR BAIG Room: [address]#: [id number] Admission: 01/04/18 Attend Phys: Yuan Florian MD Discharge: Date of : 60 Report #: [id number] NECK: Veins do not appear distended. CHEST: Clear to auscultation. CARDIOVASCULAR: Regular tachycardia, grade 2 systolic ejection murmur. ABDOMEN: Soft. EXTREMITIES: Had no edema. Dorsalis pedis pulse cannot be palpated. SKIN: Cool and dry. NEUROLOGIC: The patient did not withdraw from pain. LABORATORY DATA: ECG shows sinus tachycardia. There is ST segment elevation of up to 4 mm in V1, V2, V3, V4 with ST segment depression in leads II, III and aVF consistent with anterior injury pattern. Preliminary echo exam shows an ejection fraction of 40%. His workup in the Emergency Room, the patient had CT scan of the head without contrast that showed no acute abnormality. Chest x-ray in the Emergency Room showed normal heart size, clear lung rich. CT scan of the chest without contrast today showed bibasilar consolidation. His lab work: Sodium 133, BUN 68, creatinine 2, glucose 543, CO2 of 8, SGOT of 95, bilirubin is 6, albumin 3.0. He had GFR of only 35. Troponin is 2.11. BNP 2486. INR is 1.8. White blood cell count 67,000, hemoglobin 4, platelet count 423,000. IMPRESSION AND RECOMMENDATIONS: 1. Myocardial infarction. Appears to be ST segment elevation. However, the patient is acutely ill and I would not recommend cardiac catheterization at this time. 2. Hypertension. The patient appears to be in septic shock. Currently, on pressors. 3. Diabetes. 4. Acute renal failure. 5. Liver failure. 6. Anemia. No history of bleeding. <ELECTRONICALLY SIGNED> By: Nate Velasco MD, [facility] 01/07/18 0719 1710 [id number] Velasco MD, FAC /nt
[2018-01-07 13:44] LABS: HEMOGLOBIN 7.9 gm/dL (14.0-18.0); MCH 29.9 pg (26.0-34.0); MCHC 32.9 g/dL (28.0-37.0); MCV 90.9 fL (80.0-100.0); MPV 9.9 fl. (7.2-11.1); RBC 2.64 mil/uL (4.50-6.00); RDW-CV 16.8 % (10.5-14.5); WBC 21.3 thou/uL (4.0-11.0)
[2018-01-07 13:55] LABS: CALCIUM 7.2 mg/dL (8.5-10.1); CREATININE 2.3 mg/dL (0.6-1.3); MAGNESIUM 1.7 mg/dL (1.8-2.4)
[2018-01-07 13:56] LABS: POTASSIUM 3.6 mmol/L (3.5-5.1)
[2018-01-08] VITALS (59 sets, daily range): BP systolic 86–135; BP diastolic 47–82
[2018-01-08 05:45] LABS: ALBUMIN 2.1 g/dL (3.4-5.0); CALCIUM 6.9 mg/dL (8.5-10.1); POTASSIUM 3.9 mmol/L (3.5-5.1); TOTAL BILIRUBIN 1.5 mg/dL (<0.1-1.0); TOTAL PROTEIN 4.7 g/dL (6.4-8.2)
[2018-01-08 07:07] LABS: HIV-1/HIV-2 ANTIBODY Non Reactive (Non Reactive)
--- NOTE | 2018-01-08 14:28 | EKG ---
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: : 1960 Requested By: Yuan Florian Order Number: [id number] Reading MD: Chetan Ball Measurements Intervals [place] Rate: 139 P: 16 MN: 102 QRS: 13 QRSD: 72 T: 113 QT: 319 QTc: 485 Interpretive Statements Sinus tachycardia Low voltage, extremity and precordial leads Anteroseptal infarct, old Nonspecific T abnormalities, lateral leads Artifact in lead(s) V2,V3 and baseline wander in lead(s) V2 Compared to ECG 01/05/2018 07:44:55 Low QRS voltage now present T-wave abnormality now present Myocardial infarct finding still present Electronically Signed On 01-08-2018 14:28:37 CDT by Chetan Ball [email or web address] <ELECTRONICALLY SIGNED> By: Chetan Ball MD, [facility] 01/08/18 1428 1249 1249 Chetan Ball MD, [facility] /EPI
[2018-01-09] VITALS (20 sets, daily range): BP systolic 88–130; BP diastolic 49–93
[2018-01-09 05:56] LABS: CALCIUM 7.2 mg/dL (8.5-10.1); CREATININE 1.6 mg/dL (0.6-1.3); POTASSIUM 3.5 mmol/L (3.5-5.1); TOTAL BILIRUBIN 1.3 mg/dL (<0.1-1.0); TOTAL PROTEIN 4.5 g/dL (6.4-8.2)
[2018-01-09 07:52] LABS: HEMATOCRIT 22.7 % (42.0-52.0); HEMOGLOBIN 7.4 gm/dL (14.0-18.0); MCH 30.1 pg (26.0-34.0); MCHC 32.5 g/dL (28.0-37.0); MCV 92.6 fL (80.0-100.0); MPV 10.9 fl. (7.2-11.1); NUCLEATED RBCS 0 /100WBC; RBC 2.45 mil/uL (4.50-6.00); RDW-CV 17.2 % (10.5-14.5); WBC 11.7 thou/uL (4.0-11.0)
[2018-01-09 07:55] LABS: PLATELET COUNT* 43 thou/uL (150-400)
[2018-01-09 08:35] LABS: ABSOLUTE LYMPHOCYTES 0.1 thou/uL (0.8-5.3); ABSOLUTE NEUTROPHILS 11.6 thou/uL (1.6-8.1)
[2018-01-09 08:39] LABS: ANISOCYTOSIS 1+; PLATELET ESTIMATE DECREASED; SCHISTOCYTES Occasional
[2018-01-09 08:40] LABS: HYPOCHROMASIA 1+; MACROCYTES Occasional; POLYCHROMASIA Occasional
[2018-01-09 08:41] LABS: POIKILOCYTOSIS Occasional
[2018-01-09 12:14] LABS: BE -6.4 mmol/L (-2 to +3); HCO3 18.5 mmol/L (22.0-26.0); PCO2 34.4 mmHg (35.0-45.0); pH 7.349 (7.340-7.450)
[2018-01-09 12:18] LABS: PO2 39.7 mmHg (75.0-100.0)
[2018-01-09 14:41] LABS: BE -6.9 mmol/L (-2 to +3); HCO3 16.8 mmol/L (22.0-26.0); PCO2 27.1 mmHg (35.0-45.0); PO2 85.9 mmHg (75.0-100.0); pH 7.409 (7.340-7.450)
[2018-01-10] VITALS (22 sets, daily range): BP systolic 77–125; BP diastolic 45–89
[2018-01-10 01:54] LABS: BE -5.8 mmol/L (-2 to +3); HCO3 18.8 mmol/L (22.0-26.0); PCO2 33.6 mmHg (35.0-45.0); pH 7.365 (7.340-7.450)
[2018-01-10 01:56] LABS: PO2 55.7 mmHg (75.0-100.0)
[2018-01-10 02:38] LABS: HEMATOCRIT 30.1 % (42.0-52.0); MCH 30.4 pg (26.0-34.0); MCV 92.2 fL (80.0-100.0); MPV 10.8 fl. (7.2-11.1); RBC 3.27 mil/uL (4.50-6.00); RDW-CV 16.9 % (10.5-14.5); WBC 20.8 thou/uL (4.0-11.0)
[2018-01-10 03:10] LABS: HEMOGLOBIN 9.9 gm/dL (14.0-18.0)
[2018-01-10 04:07] LABS: CALCIUM 7.7 mg/dL (8.5-10.1); CREATININE 1.6 mg/dL (0.6-1.3); POTASSIUM 3.2 mmol/L (3.5-5.1); TOTAL BILIRUBIN 1.8 mg/dL (<0.1-1.0); TOTAL PROTEIN 4.9 g/dL (6.4-8.2)
[2018-01-10 04:08] LABS: ALBUMIN 2.2 g/dL (3.4-5.0)
[2018-01-10 09:03] LABS: HEMATOCRIT 29.3 % (42.0-52.0); HEMOGLOBIN 9.6 gm/dL (14.0-18.0); MCH 29.9 pg (26.0-34.0); MCHC 32.7 g/dL (28.0-37.0); MCV 91.5 fL (80.0-100.0); MPV 10.4 fl. (7.2-11.1); RBC 3.2 mil/uL (4.50-6.00); RDW-CV 16.5 % (10.5-14.5); WBC 23.9 thou/uL (4.0-11.0)
[2018-01-10 09:24] LABS: CALCIUM 7.7 mg/dL (8.5-10.1); CREATININE 1.7 mg/dL (0.6-1.3); POTASSIUM 3.1 mmol/L (3.5-5.1)
[2018-01-10 09:30] LABS: APTT 34.5 Seconds (25.0-31.3); INR 1.4; PROTIME 13.6 Seconds (9.20-11.50)
[2018-01-10 12:21] LABS: BE -5.7 mmol/L (-2 to +3); HCO3 17.3 mmol/L (22.0-26.0); PCO2 26.3 mmHg (35.0-45.0); PO2 79.6 mmHg (75.0-100.0); pH 7.437 (7.340-7.450)
[2018-01-11] VITALS (18 sets, daily range): BP systolic 76–150; BP diastolic 53–78
[2018-01-11 05:18] LABS: ABSOLUTE LYMPHOCYTES 0.2 thou/uL (0.8-5.3); ABSOLUTE MONOCYTES 0.7 thou/uL (0.0-1.2); ABSOLUTE NEUTROPHILS 15.2 thou/uL (1.6-8.1); BASOPHILS 0.2 %; HEMATOCRIT 25.2 % (42.0-52.0); LYMPHOCYTES 1.3 %; MCH 29.6 pg (26.0-34.0); MCHC 31.9 g/dL (28.0-37.0); MCV 92.7 fL (80.0-100.0); MONOCYTES 4.3 %; MPV 10.3 fl. (7.2-11.1); NUCLEATED RBCS 0 /100WBC; PLATELET COUNT* 102 thou/uL (150-400); POLYS 94.2 %; RBC 2.72 mil/uL (4.50-6.00); RDW-CV 17.6 % (10.5-14.5); WBC 16.2 thou/uL (4.0-11.0)
[2018-01-11 05:46] LABS: ALBUMIN 1.8 g/dL (3.4-5.0); CALCIUM 7.2 mg/dL (8.5-10.1); CREATININE 1.5 mg/dL (0.6-1.3); POTASSIUM 3.6 mmol/L (3.5-5.1); TOTAL BILIRUBIN 1.3 mg/dL (<0.1-1.0); TOTAL PROTEIN 4.3 g/dL (6.4-8.2)
[2018-01-11 07:28] LABS: PREALBUMIN 17.8 mg/dL (18.0-35.7)
[2018-01-11 08:38] LABS: BE -4.6 mmol/L (-2 to +3); HCO3 19.2 mmol/L (22.0-26.0); PCO2 30.6 mmHg (35.0-45.0); PO2 114.4 mmHg (75.0-100.0); pH 7.416 (7.340-7.450)
[2018-01-11 15:23] LABS: CREATININE 1.5 mg/dL (0.6-1.3); POTASSIUM 3.7 mmol/L (3.5-5.1)
[2018-01-12] VITALS (24 sets, daily range): BP systolic 86–135; BP diastolic 48–67
[2018-01-12 03:54] LABS: HEMATOCRIT 22.5 % (42.0-52.0); HEMOGLOBIN 7.4 gm/dL (14.0-18.0); MCH 30.6 pg (26.0-34.0); MCHC 32.8 g/dL (28.0-37.0); MCV 93.3 fL (80.0-100.0); MPV 10.8 fl. (7.2-11.1); RBC 2.42 mil/uL (4.50-6.00); RDW-CV 18.7 % (10.5-14.5)
[2018-01-12 04:16] LABS: ALBUMIN 1.6 g/dL (3.4-5.0); CREATININE 1.6 mg/dL (0.6-1.3); MAGNESIUM 2.1 mg/dL (1.8-2.4); POTASSIUM 3.8 mmol/L (3.5-5.1); TOTAL PROTEIN 3.9 g/dL (6.4-8.2)
[2018-01-12 12:25] LABS: HEMATOCRIT 21.1 % (42.0-52.0); MCH 30.6 pg (26.0-34.0); MCHC 32.3 g/dL (28.0-37.0); MCV 94.8 fL (80.0-100.0); MPV 11.4 fl. (7.2-11.1); RBC 2.23 mil/uL (4.50-6.00); RDW-CV 18.9 % (10.5-14.5); WBC 9.3 thou/uL (4.0-11.0)
[2018-01-12 12:29] LABS: HEMOGLOBIN 6.8 gm/dL (14.0-18.0)
[2018-01-12 12:34] LABS: APTT 26.6 Seconds (25.0-31.3); INR 1.3; PROTIME 12.7 Seconds (9.20-11.50)
[2018-01-13] VITALS (20 sets, daily range): BP systolic 123–169; BP diastolic 57–89
[2018-01-13 04:28] LABS: HEMATOCRIT 24.2 % (42.0-52.0); HEMOGLOBIN 7.9 gm/dL (14.0-18.0); MCH 29.6 pg (26.0-34.0); MCHC 32.6 g/dL (28.0-37.0); MCV 90.8 fL (80.0-100.0); MPV 10.9 fl. (7.2-11.1); NUCLEATED RBCS 0 /100WBC; PLATELET COUNT* 77 thou/uL (150-400); RBC 2.67 mil/uL (4.50-6.00); RDW-CV 18.9 % (10.5-14.5); WBC 12.2 thou/uL (4.0-11.0)
[2018-01-13 04:43] LABS: ALBUMIN 1.6 g/dL (3.4-5.0); CALCIUM 6.8 mg/dL (8.5-10.1); CREATININE 1.9 mg/dL (0.6-1.3); POTASSIUM 4.1 mmol/L (3.5-5.1); TOTAL BILIRUBIN 0.9 mg/dL (<0.1-1.0); TOTAL PROTEIN 3.8 g/dL (6.4-8.2)
[2018-01-13 06:17] LABS: ABSOLUTE LYMPHOCYTES 0.2 thou/uL (0.8-5.3); ABSOLUTE MONOCYTES 0.4 thou/uL (0.0-1.2); ABSOLUTE NEUTROPHILS 11.6 thou/uL (1.6-8.1); PLATELET ESTIMATE DECREASED
[2018-01-13 06:18] LABS: ANISOCYTOSIS 1+; HYPOCHROMASIA 1+; POIKILOCYTOSIS Occasional; TOXIC GRANULATION 1+
[2018-01-13 11:16] LABS: HCO3 13.6 mmol/L (22.0-26.0); PO2 124.2 mmHg (75.0-100.0)
[2018-01-13 11:17] LABS: BE -9.9 mmol/L (-2 to +3)
[2018-01-14] VITALS (33 sets, daily range): BP systolic 130–233; BP diastolic 64–101
[2018-01-14 06:28] LABS: HEMATOCRIT 26.3 % (42.0-52.0); HEMOGLOBIN 8.5 gm/dL (14.0-18.0); MCH 29.5 pg (26.0-34.0); MCHC 32.3 g/dL (28.0-37.0); MCV 91.1 fL (80.0-100.0); MPV 10.9 fl. (7.2-11.1); RBC 2.89 mil/uL (4.50-6.00); RDW-CV 18.1 % (10.5-14.5); WBC 14.2 thou/uL (4.0-11.0)
[2018-01-14 06:39] LABS: ALBUMIN 1.5 g/dL (3.4-5.0); CALCIUM 6.9 mg/dL (8.5-10.1); CREATININE 2.2 mg/dL (0.6-1.3); MAGNESIUM 2.1 mg/dL (1.8-2.4); POTASSIUM 4.2 mmol/L (3.5-5.1); TOTAL BILIRUBIN 0.9 mg/dL (<0.1-1.0); TOTAL PROTEIN 4.1 g/dL (6.4-8.2)
--- NOTE | 2018-01-14 11:12 | EKG ---
[place] [address] ELECTROCARDIOGRAM REPORT Name: JOVANNISAMIR Da Silva Room: [address] ADM IN .R.#: [id number] Admission: 01/04/18 Attend Phys: Yuan Florian MD Discharge: Date of : 60 Report #: [id number] THIS REPORT FOR: //name// [facility] Test Date: 2018-01-12 Test Time: 04:01:04 Pat Name: SAMIR BAIG Department: Room: [address] Gender: M Epic Specialist: . : 1960 Requested By: Yuan Florian Order Number: [id number] Reading MD: Nate Velasco Measurements Intervals [place] Rate: 179 P: 239 [place]: 120 QRS: 54 QRSD: 68 T: 240 QT: 248 QTc: 428 Interpretive Statements atrial fibrillation Probable anterior infarct, age indeterminate Compared to ECG 01/07/2018 12:49:38 Sinus tachycardia no longer present Electronically Signed On 01-14-2018 11:12:24 CDT by Nate Velasco [email or web address] <ELECTRONICALLY SIGNED> By: Nate Velasco MD, [facility] 01/14/18 1112 0401 0401 Nate Velasco MD, [facility] /EPI
[2018-01-14 12:03] LABS: BE -9.5 mmol/L (-2 to +3); HCO3 14.2 mmol/L (22.0-26.0); PCO2 25.1 mmHg (35.0-45.0); pH 7.371 (7.340-7.450)
[2018-01-14 12:07] LABS: PO2 131.1 mmHg (75.0-100.0)
--- NOTE | 2018-01-14 14:47 | EKG ---
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 : 1960 Requested By: Pascual Batres Order Number: [id number] Kristina MD: Nate Velasco Measurements Intervals [place] Rate: 77 P: 41 [place]: 118 QRS: 34 QRSD: 78 T: QT: 531 QTc: 602 Interpretive Statements Sinus rhythm Borderline short [place] interval Probable anterior infarct, age indeterminate Prolonged QT interval Electronically Signed On 01-14-2018 14:46:49 CDT by Nate Velasco [email or web address] <ELECTRONICALLY SIGNED> By: Nate Velasco MD, [facility] 01/14/18 1446 0437 0437 Nate Velasco MD, FACC /EPI
[2018-01-15] VITALS (14 sets, daily range): BP systolic 121–181; BP diastolic 51–75
[2018-01-15 04:14] LABS: HEMATOCRIT 25.5 % (42.0-52.0); HEMOGLOBIN 8.2 gm/dL (14.0-18.0); MCH 29.4 pg (26.0-34.0); MCHC 32.1 g/dL (28.0-37.0); MCV 91.4 fL (80.0-100.0); MPV 11.1 fl. (7.2-11.1); RBC 2.79 mil/uL (4.50-6.00); RDW-CV 17.7 % (10.5-14.5); WBC 12.5 thou/uL (4.0-11.0)
[2018-01-15 04:31] LABS: ALBUMIN 1.4 g/dL (3.4-5.0); CREATININE 2.5 mg/dL (0.6-1.3); MAGNESIUM 2.1 mg/dL (1.8-2.4); POTASSIUM 4.1 mmol/L (3.5-5.1); TOTAL PROTEIN 3.8 g/dL (6.4-8.2)
[2018-01-15 16:50] LABS: BE -10.5 mmol/L (-2 to +3); HCO3 14.8 mmol/L (22.0-26.0); PCO2 31.2 mmHg (35.0-45.0); PO2 60.8 mmHg (75.0-100.0)
[2018-01-15 16:53] LABS: pH 7.295 (7.340-7.450)
--- NOTE | 2018-01-15 16:59 | CON ---
[address] [address] CONSULTATION Name: TALISHASANKETSAMIR Room: [address] IN [facility]#: [id number] Admission: 01/04/18 Attend Phys: Yuna Florian MD Discharge: Date of : 60 Report #: [id number] THIS REPORT FOR: //name// CC: Yuan Valerio DATE OF SERVICE: 01/05/2018 REASON FOR CONSULT: Elevated liver enzymes and bilirubin. HISTORY OF PRESENT ILLNESS: This is a 57-year-old male with history of spider bite a week ago who apparently was confused the day prior to admission. The patient was then admitted and had severe anemia with hemoglobin in range of 4. He was found to have hemolysis as a source of his bleeding, which prompted his bilirubin to be elevated. He also has transaminitis and evidence of rhabdomyolysis with CPK in range of 2000. The patient currently is sedated and intubated. He is on 8 mcg of Levophed and maintaining pressure. Since the patient is sedated, we obtained information from other notes. PAST MEDICAL HISTORY: Significant for history of autism, diabetes, ADHD. ALLERGIES AND MEDICATIONS: Please refer to hospital MAR. SOCIAL HISTORY: The patient has no history of alcohol or tobacco use. FAMILY HISTORY: Noncontributory. PHYSICAL EXAMINATION: GENERAL: Reveals an intubated male, stated age. LUNGS: Clear to auscultation bilaterally. CARDIOVASCULAR: Tachycardia with rate of 120, but regular. ABDOMEN: Soft, nontender, nondistended. There is necrotic skin lesion in the right side of the trunk, which is the area of the spider bite. NEUROLOGIC: The patient is intubated and sedated. LABORATORY DATA: Reveal sodium of 145, potassium 4.3, BUN is 81, creatinine 2.4, glucose 307. AST is 485, ALT is 259, alkaline phosphatase is 102, total bilirubin is 6.7. Ammonia level is 143. INR is 1.7. WBC is 24.9, down from 67; hemoglobin is 7.6; platelet is 85. IMAGING: CT of abdomen and pelvis were obtained. There is apparent right colon wall thickening with left colon wall also mildly thickened. This may [place] [address] CONSULTATION Name: SAMIR BAIG Room: [address] IN [facility]#: [id number] Admission: 01/04/18 Attend Phys: Yuan Florian MD Discharge: Date of : 60 Report #: [id number] ASSESSMENT AND PLAN: The patient with history of spider bite, who has hemolysis, rhabdomyolysis, respiratory failure, and encephalopathy. We will order a GGT and continue monitoring patient's LFTs. The abnormal LFTs may be partly associated with the rhabdomyolysis. The patient's hyperbilirubinemia also may be due to hemolysis and sepsis. The patient to be continued on broad coverage antibiotics recommended by ID. We will continue to monitor during this hospitalization. <ELECTRONICALLY SIGNED> By: Chinmay Rothman MD 01/15/18 1659 1409 1930Chinmay Rothman MD /nt
--- NOTE | 2018-01-15 17:54 | EKG ---
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: : 1960 Requested By: Nate Velasco Order Number: [id number] Kristina MD: Ronnie Villanueva Measurements Intervals [place] Rate: 95 P: 21 SD: 124 QRS: 34 QRSD: 76 T: 118 QT: 420 QTc: 528 Interpretive Statements Sinus rhythm Anterior infarct, old, possible Nonspecific T abnormalities, lateral leads Prolonged QT interval Compared to ECG 01/13/2018 04:37:50 T-wave abnormality now present Myocardial infarct finding still present Electronically Signed On 01-15-2018 17:54:09 CDT by Ronnie Villanueva [email or web address] <ELECTRONICALLY SIGNED> By: Ronnie Villanueva MD, FACC 01/15/18 1754 0803 0803 Ronnie Villanueva MD, [facility] /EPI
[2018-01-15 19:14] LABS: URINE PROTEIN (MG/DL) 16.1 mg/dL (Not Estab.)
[2018-01-16] VITALS (13 sets, daily range): BP systolic 127–195; BP diastolic 58–79
[2018-01-16 05:35] LABS: HEMATOCRIT 25.9 % (42.0-52.0); HEMOGLOBIN 8.4 gm/dL (14.0-18.0); MCH 29.5 pg (26.0-34.0); MCHC 32.5 g/dL (28.0-37.0); MCV 90.5 fL (80.0-100.0); MPV 10.5 fl. (7.2-11.1); RBC 2.86 mil/uL (4.50-6.00); RDW-CV 17.7 % (10.5-14.5)
[2018-01-16 05:45] LABS: CALCIUM 6.8 mg/dL (8.5-10.1); CREATININE 2.9 mg/dL (0.6-1.3); MAGNESIUM 2.1 mg/dL (1.8-2.4); POTASSIUM 3.1 mmol/L (3.5-5.1)
[2018-01-16 08:26] LABS: URINE BILIRUBIN NEGATIVE (Negative); URINE BLOOD 3+ (Negative); URINE CLARITY CLEAR; URINE COLOR YELLOW; URINE GLUCOSE-RANDOM NEGATIVE (Negative); URINE KETONES TRACE (Negative); URINE LEUKOCYTES NEGATIVE (Negative); URINE NITRITE NEGATIVE (Negative); URINE PROTEIN 1+ (Negative); URINE UROBILINOGEN 0.2 E.U./dl (0.2-1.0)
[2018-01-16 08:42] LABS: BACTERIA 1-9 Few /HPF (None Seen); MUCUS 0-3 Light strn/LPF (None Seen); SQUAMOUS 0-3 Few /LPF (0-3); URINE WBC 0-5 Rare /HPF (0-5)
[2018-01-16 08:43] LABS: COARSE GRANULAR CASTS 4-10 Moderate /LPF (None Seen); CRYSTALS None Seen /LPF (None Seen); FINE GRANULAR CASTS 0-3 Few /LPF (None Seen); HYALINE CASTS 4-10 Moderate /LPF (None Seen)
[2018-01-16 10:35] LABS: BE -11.1 mmol/L (-2 to +3); HCO3 12.7 mmol/L (22.0-26.0); PCO2 22.5 mmHg (35.0-45.0); PO2 103.3 mmHg (75.0-100.0); pH 7.368 (7.340-7.450)
[2018-01-16 16:26] LABS: BE -9.8 mmol/L (-2 to +3); HCO3 13.6 mmol/L (22.0-26.0); PCO2 23.2 mmHg (35.0-45.0); PO2 86.1 mmHg (75.0-100.0); pH 7.385 (7.340-7.450)
[2018-01-17] VITALS (15 sets, daily range): BP systolic 106–171; BP diastolic 60–82
[2018-01-17 03:54] LABS: HEMATOCRIT 26.8 % (42.0-52.0); HEMOGLOBIN 8.8 gm/dL (14.0-18.0); MCH 29.7 pg (26.0-34.0); MPV 10.3 fl. (7.2-11.1); RBC 2.98 mil/uL (4.50-6.00); RDW-CV 17.9 % (10.5-14.5); WBC 15.1 thou/uL (4.0-11.0)
[2018-01-17 04:07] LABS: INR 1.1; PROTIME 10.8 Seconds (9.20-11.50)
[2018-01-17 04:08] LABS: ALBUMIN 1.4 g/dL (3.4-5.0); CALCIUM 7.1 mg/dL (8.5-10.1); MAGNESIUM 2.2 mg/dL (1.8-2.4); PHOSPHORUS* 5.4 mg/dL (2.5-4.9); POTASSIUM 3.4 mmol/L (3.5-5.1); TOTAL PROTEIN 4.2 g/dL (6.4-8.2)
[2018-01-17 13:04] LABS: BE -10.2 mmol/L (-2 to +3); HCO3 13.1 mmol/L (22.0-26.0); PCO2 21.7 mmHg (35.0-45.0); PO2 149.8 mmHg (75.0-100.0); pH 7.399 (7.340-7.450)
[2018-01-18] VITALS (23 sets, daily range): BP systolic 130–188; BP diastolic 70–107
[2018-01-18 04:40] LABS: HEMATOCRIT 26.4 % (42.0-52.0); HEMOGLOBIN 8.7 gm/dL (14.0-18.0); MCH 29.7 pg (26.0-34.0); MCHC 33.1 g/dL (28.0-37.0); MCV 89.7 fL (80.0-100.0); MPV 10.9 fl. (7.2-11.1); RBC 2.94 mil/uL (4.50-6.00); RDW-CV 17.4 % (10.5-14.5); WBC 14.2 thou/uL (4.0-11.0)
[2018-01-18 04:49] LABS: CALCIUM 7.3 mg/dL (8.5-10.1); MAGNESIUM 2.4 mg/dL (1.8-2.4); PHOSPHORUS* 5.7 mg/dL (2.5-4.9); POTASSIUM 3.5 mmol/L (3.5-5.1)
[2018-01-18 11:13] LABS: GLOBULIN TOTAL 1.7 g/dL (2.2-3.9); M-SPIKE Not Observed g/dL (Not Observed)
[2018-01-19] VITALS (22 sets, daily range): BP systolic 138–187; BP diastolic 61–134
[2018-01-19 02:36] LABS: HEMATOCRIT 25.6 % (42.0-52.0); HEMOGLOBIN 8.5 gm/dL (14.0-18.0); MCH 29.8 pg (26.0-34.0); MCHC 33.2 g/dL (28.0-37.0); MCV 89.8 fL (80.0-100.0); MPV 11.4 fl. (7.2-11.1); RBC 2.85 mil/uL (4.50-6.00); RDW-CV 17.6 % (10.5-14.5); WBC 12.1 thou/uL (4.0-11.0)
[2018-01-19 02:50] LABS: ALBUMIN 1.5 g/dL (3.4-5.0); CALCIUM 7.5 mg/dL (8.5-10.1); CREATININE 2.9 mg/dL (0.6-1.3); MAGNESIUM 2.4 mg/dL (1.8-2.4); TOTAL BILIRUBIN 0.7 mg/dL (<0.1-1.0); TOTAL PROTEIN 4.4 g/dL (6.4-8.2)
[2018-01-19 03:06] LABS: POTASSIUM 2.9 mmol/L (3.5-5.1)
[2018-01-19 10:39] LABS: HCO3 16.4 mmol/L (22.0-26.0); PCO2 29.9 mmHg (35.0-45.0); pH 7.358 (7.340-7.450)
[2018-01-19 10:55] LABS: PO2 38.4 mmHg (75.0-100.0)
[2018-01-20] VITALS (15 sets, daily range): BP systolic 104–165; BP diastolic 44–89
[2018-01-20 05:21] LABS: HEMATOCRIT 24.8 % (42.0-52.0); HEMOGLOBIN 8.2 gm/dL (14.0-18.0); MCHC 32.9 g/dL (28.0-37.0); MCV 91.2 fL (80.0-100.0); RBC 2.72 mil/uL (4.50-6.00); RDW-CV 18.1 % (10.5-14.5); WBC 9.7 thou/uL (4.0-11.0)
[2018-01-20 05:44] LABS: ALBUMIN 1.5 g/dL (3.4-5.0); CALCIUM 7.2 mg/dL (8.5-10.1); CREATININE 2.5 mg/dL (0.6-1.3); MAGNESIUM 2.2 mg/dL (1.8-2.4); TOTAL BILIRUBIN 0.6 mg/dL (<0.1-1.0); TOTAL PROTEIN 4.4 g/dL (6.4-8.2)
[2018-01-20 17:41] LABS: ABSOLUTE LYMPHOCYTES 0.1 thou/uL (0.8-5.3); ABSOLUTE MONOCYTES 0.3 thou/uL (0.0-1.2); ABSOLUTE NEUTROPHILS 7.5 thou/uL (1.6-8.1); BASOPHILS 0.1 %; HEMATOCRIT 25.3 % (42.0-52.0); HEMOGLOBIN 8.1 gm/dL (14.0-18.0); LYMPHOCYTES 1.7 %; MCH 29.5 pg (26.0-34.0); MCV 92.1 fL (80.0-100.0); MONOCYTES 4.1 %; MPV 11.4 fl. (7.2-11.1); NUCLEATED RBCS 0 /100WBC; POLYS 94.1 %; RBC 2.74 mil/uL (4.50-6.00); RDW-CV 19.8 % (10.5-14.5)
[2018-01-20 17:48] LABS: PLATELET COUNT* 65 thou/uL (150-400)
[2018-01-21] VITALS (7 sets, daily range): BP systolic 114–145; BP diastolic 58–85
[2018-01-21 05:14] LABS: HEMATOCRIT 24.4 % (42.0-52.0); MCH 29.9 pg (26.0-34.0); MCHC 32.7 g/dL (28.0-37.0); MCV 91.5 fL (80.0-100.0); MPV 11.5 fl. (7.2-11.1); RBC 2.66 mil/uL (4.50-6.00); RDW-CV 18.3 % (10.5-14.5); WBC 9.6 thou/uL (4.0-11.0)
[2018-01-21 05:35] LABS: ALBUMIN 1.6 g/dL (3.4-5.0); CALCIUM 7.4 mg/dL (8.5-10.1); CREATININE 2.5 mg/dL (0.6-1.3); POTASSIUM 3.7 mmol/L (3.5-5.1); TOTAL BILIRUBIN 0.6 mg/dL (<0.1-1.0); TOTAL PROTEIN 4.3 g/dL (6.4-8.2)
[2018-01-21 10:40] LABS: URINE PROTEIN 300 mg/24 hr (30-150); URINE PROTEIN (MG/DL) 16.2 mg/dL (Not Estab.)
[2018-01-22] VITALS (7 sets, daily range): BP systolic 101–168; BP diastolic 42–78
[2018-01-22 04:27] LABS: HEMATOCRIT 27.3 % (42.0-52.0); HEMOGLOBIN 8.7 gm/dL (14.0-18.0); MCH 30.1 pg (26.0-34.0); NUCLEATED RBCS 0 /100WBC; PLATELET COUNT* 50 thou/uL (150-400); RDW-CV 19.2 % (10.5-14.5); WBC 9.3 thou/uL (4.0-11.0)
[2018-01-22 04:49] LABS: ALBUMIN 1.5 g/dL (3.4-5.0); CALCIUM 7.6 mg/dL (8.5-10.1); CREATININE 2.3 mg/dL (0.6-1.3); PREALBUMIN 22.1 mg/dL (18.0-35.7); TOTAL BILIRUBIN 0.6 mg/dL (<0.1-1.0); TOTAL PROTEIN 4.3 g/dL (6.4-8.2)
[2018-01-22 04:57] LABS: POTASSIUM 4.8 mmol/L (3.5-5.1)
[2018-01-22 05:46] LABS: ABSOLUTE LYMPHOCYTES 0.5 thou/uL (0.8-5.3); ABSOLUTE MONOCYTES 0.1 thou/uL (0.0-1.2); ABSOLUTE NEUTROPHILS 8.7 thou/uL (1.6-8.1)
[2018-01-22 05:47] LABS: ANISOCYTOSIS 1+; PLATELET ESTIMATE DECREASED; POIKILOCYTOSIS 1+
[2018-01-23 04:00] VITALS: BP 139/74
[2018-01-23 07:27] LABS: ABSOLUTE EOSINOPHILS 0.1 thou/uL (0.0-0.7); ABSOLUTE LYMPHOCYTES 0.6 thou/uL (0.8-5.3); ABSOLUTE MONOCYTES 0.4 thou/uL (0.0-1.2); ABSOLUTE NEUTROPHILS 9.6 thou/uL (1.6-8.1); BASOPHILS 0.3 %; EOSINOPHILS 0.6 %; HEMATOCRIT 23.8 % (42.0-52.0); HEMOGLOBIN 7.9 gm/dL (14.0-18.0); MCH 30.2 pg (26.0-34.0); MCHC 33.3 g/dL (28.0-37.0); MCV 90.5 fL (80.0-100.0); MONOCYTES 3.9 %; MPV 10.9 fl. (7.2-11.1); NUCLEATED RBCS 0 /100WBC; PLATELET COUNT* 53 thou/uL (150-400); POLYS 89.2 %; RBC 2.63 mil/uL (4.50-6.00); RDW-CV 17.7 % (10.5-14.5); WBC 10.8 thou/uL (4.0-11.0)
[2018-01-23 07:45] LABS: ALBUMIN 1.7 g/dL (3.4-5.0); CALCIUM 7.5 mg/dL (8.5-10.1); CREATININE 2.1 mg/dL (0.6-1.3); MAGNESIUM 1.8 mg/dL (1.8-2.4); POTASSIUM 3.6 mmol/L (3.5-5.1); TOTAL BILIRUBIN 0.7 mg/dL (<0.1-1.0); TOTAL PROTEIN 4.5 g/dL (6.4-8.2)
[2018-01-23 08:08] VITALS: BP 141/69
[2018-01-23 12:00] VITALS: BP 143/78
[2018-01-23 19:45] VITALS: BP 109/53
[2018-01-24] VITALS: BP 105/63
[2018-01-24 04:00] VITALS: BP 140/70
[2018-01-24 08:00] VITALS: BP 139/75
[2018-01-24 09:26] LABS: ABSOLUTE LYMPHOCYTES 0.5 thou/uL (0.8-5.3); ABSOLUTE MONOCYTES 0.4 thou/uL (0.0-1.2); ABSOLUTE NEUTROPHILS 11.1 thou/uL (1.6-8.1); BASOPHILS 0.3 %; EOSINOPHILS 0.4 %; HEMATOCRIT 25.1 % (42.0-52.0); HEMOGLOBIN 8.2 gm/dL (14.0-18.0); LYMPHOCYTES 4.1 %; MCH 29.6 pg (26.0-34.0); MCHC 32.7 g/dL (28.0-37.0); MCV 90.6 fL (80.0-100.0); MONOCYTES 3.4 %; NUCLEATED RBCS 0 /100WBC; PLATELET COUNT* 58 thou/uL (150-400); POLYS 91.8 %; RBC 2.78 mil/uL (4.50-6.00); RDW-CV 17.8 % (10.5-14.5); WBC 12.1 thou/uL (4.0-11.0)
[2018-01-24 09:30] LABS: CALCIUM 7.2 mg/dL (8.5-10.1); POTASSIUM 3.7 mmol/L (3.5-5.1)
[2018-01-24 09:35] LABS: ALBUMIN 1.7 g/dL (3.4-5.0); TOTAL BILIRUBIN 0.6 mg/dL (<0.1-1.0); TOTAL PROTEIN 4.6 g/dL (6.4-8.2)
[2018-01-24 11:52] VITALS: BP 124/62
[2018-01-24 15:15] VITALS: BP 92/52
[2018-01-24 17:05] LABS: HEMOGLOBIN 7.7 gm/dL (14.0-18.0); MCH 30.1 pg (26.0-34.0); MCHC 33.4 g/dL (28.0-37.0); MCV 90.2 fL (80.0-100.0); MPV 10.8 fl. (7.2-11.1); NUCLEATED RBCS 0 /100WBC; PLATELET COUNT* 58 thou/uL (150-400); RBC 2.56 mil/uL (4.50-6.00); RDW-CV 17.6 % (10.5-14.5)
[2018-01-24 17:20] LABS: APTT 24.7 Seconds (25.0-31.3); PROTIME 10.1 Seconds (9.20-11.50)
[2018-01-24 17:35] LABS: ABSOLUTE LYMPHOCYTES 0.3 thou/uL (0.8-5.3); ABSOLUTE NEUTROPHILS 10.7 thou/uL (1.6-8.1)
[2018-01-24 17:36] LABS: ANISOCYTOSIS Occasional; PLATELET ESTIMATE DECREASED
[2018-01-24 20:15] VITALS: BP 104/54
[2018-01-25] VITALS (7 sets, daily range): BP systolic 104–144; BP diastolic 56–75
[2018-01-25 04:44] LABS: ABSOLUTE LYMPHOCYTES 0.4 thou/uL (0.8-5.3); ABSOLUTE MONOCYTES 0.3 thou/uL (0.0-1.2); ABSOLUTE NEUTROPHILS 8.9 thou/uL (1.6-8.1); BASOPHILS 0.2 %; EOSINOPHILS 0.1 %; HEMATOCRIT 21.9 % (42.0-52.0); HEMOGLOBIN 7.4 gm/dL (14.0-18.0); LYMPHOCYTES 4.2 %; MCH 30.4 pg (26.0-34.0); MCHC 33.6 g/dL (28.0-37.0); MCV 90.5 fL (80.0-100.0); MONOCYTES 3.4 %; MPV 10.9 fl. (7.2-11.1); NUCLEATED RBCS 0 /100WBC; PLATELET COUNT* 57 thou/uL (150-400); POLYS 92.1 %; RBC 2.42 mil/uL (4.50-6.00); RDW-CV 17.8 % (10.5-14.5); WBC 9.7 thou/uL (4.0-11.0)
[2018-01-25 05:01] LABS: PREALBUMIN 19.3 mg/dL (18.0-35.7)
[2018-01-25 05:03] LABS: ALBUMIN 1.5 g/dL (3.4-5.0); CALCIUM 7.1 mg/dL (8.5-10.1); CREATININE 1.9 mg/dL (0.6-1.3); POTASSIUM 3.5 mmol/L (3.5-5.1); TOTAL BILIRUBIN 0.5 mg/dL (<0.1-1.0); TOTAL PROTEIN 4.1 g/dL (6.4-8.2)
[2018-01-26] VITALS: BP 114/53
[2018-01-26 04:00] VITALS: BP 108/53
[2018-01-26 08:00] VITALS: BP 145/76
[2018-01-26 10:37] LABS: ALBUMIN 1.6 g/dL (3.4-5.0); CALCIUM 7.1 mg/dL (8.5-10.1); CREATININE 1.8 mg/dL (0.6-1.3); POTASSIUM 3.7 mmol/L (3.5-5.1); TOTAL BILIRUBIN 0.4 mg/dL (<0.1-1.0)
[2018-01-26 11:25] VITALS: BP 108/54
[2018-01-26 11:25] LABS: ABSOLUTE EOSINOPHILS 0.1 thou/uL (0.0-0.7); ABSOLUTE LYMPHOCYTES 0.4 thou/uL (0.8-5.3); ABSOLUTE MONOCYTES 0.3 thou/uL (0.0-1.2); ABSOLUTE NEUTROPHILS 10.2 thou/uL (1.6-8.1); BASOPHILS 0.3 %; EOSINOPHILS 0.9 %; HEMATOCRIT 23.5 % (42.0-52.0); HEMOGLOBIN 7.8 gm/dL (14.0-18.0); LYMPHOCYTES 3.3 %; MCH 30.3 pg (26.0-34.0); MCHC 33.2 g/dL (28.0-37.0); MCV 91.2 fL (80.0-100.0); MPV 10.9 fl. (7.2-11.1); NUCLEATED RBCS 0 /100WBC; PLATELET COUNT* 71 thou/uL (150-400); POLYS 92.5 %; RBC 2.57 mil/uL (4.50-6.00); RDW-CV 18.1 % (10.5-14.5)
[2018-01-26 15:43] VITALS: BP 112/61
[2018-01-26 19:41] LABS: ABSOLUTE LYMPHOCYTES 0.3 thou/uL (0.8-5.3); ABSOLUTE MONOCYTES 0.4 thou/uL (0.0-1.2); ABSOLUTE NEUTROPHILS 13.5 thou/uL (1.6-8.1); BASOPHILS 0.3 %; HEMATOCRIT 23.8 % (42.0-52.0); HEMOGLOBIN 7.7 gm/dL (14.0-18.0); LYMPHOCYTES 1.8 %; MCH 29.5 pg (26.0-34.0); MCHC 32.3 g/dL (28.0-37.0); MCV 91.4 fL (80.0-100.0); MONOCYTES 2.5 %; MPV 10.6 fl. (7.2-11.1); NUCLEATED RBCS 0 /100WBC; PLATELET COUNT* 79 thou/uL (150-400); POLYS 95.4 %; RDW-CV 18.7 % (10.5-14.5); WBC 14.1 thou/uL (4.0-11.0)
[2018-01-27] VITALS: BP 107/54
[2018-01-27 04:00] VITALS: BP 119/61
[2018-01-27 05:27] LABS: ABSOLUTE BASOPHILS 0.1 thou/uL (0.0-0.2); ABSOLUTE EOSINOPHILS 0.2 thou/uL (0.0-0.7); ABSOLUTE LYMPHOCYTES 0.5 thou/uL (0.8-5.3); ABSOLUTE MONOCYTES 0.3 thou/uL (0.0-1.2); ABSOLUTE NEUTROPHILS 9.8 thou/uL (1.6-8.1); BASOPHILS 0.6 %; EOSINOPHILS 1.7 %; HEMATOCRIT 22.7 % (42.0-52.0); HEMOGLOBIN 7.5 gm/dL (14.0-18.0); LYMPHOCYTES 4.9 %; MCH 30.5 pg (26.0-34.0); MCHC 33.2 g/dL (28.0-37.0); MONOCYTES 2.7 %; MPV 10.5 fl. (7.2-11.1); NUCLEATED RBCS 0 /100WBC; PLATELET COUNT* 82 thou/uL (150-400); POLYS 90.1 %; RBC 2.47 mil/uL (4.50-6.00); RDW-CV 18.4 % (10.5-14.5); WBC 10.9 thou/uL (4.0-11.0)
[2018-01-27 06:14] LABS: ALBUMIN 1.6 g/dL (3.4-5.0); CALCIUM 7.2 mg/dL (8.5-10.1); CREATININE 1.6 mg/dL (0.6-1.3); POTASSIUM 3.9 mmol/L (3.5-5.1); TOTAL BILIRUBIN 0.4 mg/dL (<0.1-1.0); TOTAL PROTEIN 4.1 g/dL (6.4-8.2)
[2018-01-27 08:00] VITALS: BP 122/61
[2018-01-27 11:59] VITALS: BP 99/49
[2018-01-27 15:34] VITALS: BP 110/55
[2018-01-28] VITALS: BP 117/58
[2018-01-28 04:00] VITALS: BP 140/64
[2018-01-28 09:23] LABS: CALCIUM 7.3 mg/dL (8.5-10.1); CREATININE 1.7 mg/dL (0.6-1.3); HEMATOCRIT 23.2 % (42.0-52.0); HEMOGLOBIN 7.6 gm/dL (14.0-18.0); MCH 30.1 pg (26.0-34.0); MCHC 32.8 g/dL (28.0-37.0); MCV 91.7 fL (80.0-100.0); MPV 10.3 fl. (7.2-11.1); NUCLEATED RBCS 0 /100WBC; PLATELET COUNT* 90 thou/uL (150-400); POTASSIUM 4.1 mmol/L (3.5-5.1); RBC 2.53 mil/uL (4.50-6.00); RDW-CV 18.2 % (10.5-14.5); WBC 8.7 thou/uL (4.0-11.0)
[2018-01-28 10:15] LABS: ABSOLUTE EOSINOPHILS 0.3 thou/uL (0.0-0.7); ABSOLUTE LYMPHOCYTES 0.3 thou/uL (0.8-5.3); ABSOLUTE MONOCYTES 0.1 thou/uL (0.0-1.2)
[2018-01-28 10:16] LABS: PLATELET ESTIMATE DECREASED
[2018-01-28 15:31] VITALS: BP 103/56
[2018-01-28 20:00] VITALS: BP 115/59
[2018-01-29] VITALS: BP 120/56
[2018-01-29 04:00] VITALS: BP 114/63
[2018-01-29 04:41] LABS: ABSOLUTE EOSINOPHILS 0.4 thou/uL (0.0-0.7); ABSOLUTE LYMPHOCYTES 0.5 thou/uL (0.8-5.3); ABSOLUTE MONOCYTES 0.3 thou/uL (0.0-1.2); ABSOLUTE NEUTROPHILS 5.7 thou/uL (1.6-8.1); BASOPHILS 0.5 %; EOSINOPHILS 5.3 %; HEMATOCRIT 23.1 % (42.0-52.0); HEMOGLOBIN 7.4 gm/dL (14.0-18.0); LYMPHOCYTES 7.7 %; MCH 30.6 pg (26.0-34.0); MCHC 32.2 g/dL (28.0-37.0); MONOCYTES 4.6 %; MPV 10.4 fl. (7.2-11.1); NUCLEATED RBCS 0 /100WBC; PLATELET COUNT* 82 thou/uL (150-400); POLYS 81.9 %; RBC 2.43 mil/uL (4.50-6.00); RDW-CV 18.5 % (10.5-14.5)
[2018-01-29 04:56] LABS: ALBUMIN 1.4 g/dL (3.4-5.0); CALCIUM 7.4 mg/dL (8.5-10.1); CREATININE 1.7 mg/dL (0.6-1.3); TOTAL BILIRUBIN 0.4 mg/dL (<0.1-1.0); TOTAL PROTEIN 4.4 g/dL (6.4-8.2)
[2018-01-29 08:15] VITALS: BP 111/51
[2018-01-29] MEDS ORDERED: PREDNISONE 20 M20 MG PO (09:40)
[2018-01-29] MEDS ORDERED: AMIODARONE HCL100 MG PO (09:41)
[2018-01-29] MEDS ORDERED: ASPIR 8181 MG PO (09:42)
[2018-01-29] MEDS ORDERED: CALCIUM ACETAT667 MG PO (09:42)
[2018-01-29] MEDS ORDERED: CLOPIDOGREL75 MG PO (09:43)
[2018-01-29] MEDS ORDERED: CARVEDILOL3.125 MG PO (09:43)
[2018-01-29] MEDS ORDERED: HEPARIN 5 U1 UNIT/ML SUBQ (09:45)
[2018-01-29] MEDS ORDERED: HYDRALAZINE 2525 MG PO (09:45)
[2018-01-29] MEDS ORDERED: HUMALOG100 UNIT/1 SUBQ (09:46)
[2018-01-29] MEDS ORDERED: HUMULIN N100 UNIT/1 SUBQ (09:48)
[2018-01-29] MEDS ORDERED: IPRAT-ALBUT 0.5-3 ML INH (09:49)
[2018-01-29 09:50] VITALS: BP 111/51
[2018-01-29 12:49] VITALS: BP 123/63
--- NOTE | 2018-02-12 08:57 | CON ---
[address] [address] CONSULTATION Name: TALISHASANKETSAMIR Room: [address] IN M.R.#: [id number] Admission: 01/04/18 Attend Phys: Yuan Florian MD Discharge: 01/29/18 Date of : 60 Report #: [id number] THIS REPORT FOR: //name// CC: Yuan Valerio REASON FOR CONSULTATION: This is a consultation obtained by Dr. Florian for acute kidney injury and severe metabolic acidosis on presentation. HISTORY OF PRESENT ILLNESS: The patient is a 57-year-old gentleman who is in the intensive care unit. The patient is presently intubated and sedated, hence history is not obtainable from the patient. The records were reviewed. Discussed in detail with Dr. Florian and history was obtained from these sources. I also discussed with nursing staff in detail. The patient is a 57-year-old gentleman with history of diabetes. He presented to the hospital with worsening lethargy, confusion, fatigue and tiredness and generally not feeling well. Medical help was apparently sought by a family member who had noticed he was not doing well. History of not feeling well for the past few days has been reported. The patient has progressively gotten worse. Apparently, there is a history of spider bite on the patient's chest wall on the right. The patient received some antibiotics, the nature of which of those is unknown at this moment and some steroids from his primary care physician a few days ago. The patient progressively felt worse, had poor appetite, became more lethargic and confused at which point EMS was called for help. On arrival to the ER, the patient was found to be markedly hypotensive, was found to be severely jaundiced and with impending respiratory failure was immediately intubated, was found to have severe metabolic acidosis on admission with a pH of 6.905, pCO2 of 33 and a bicarbonate level of 6.5. In addition, he was also found to be severely anemic with a hemoglobin of 4.8 on presentation. His platelet count was normal at that time and he had a markedly elevated white cell count of 67,000. His platelets have dropped since admission and his white count has normalized partially. He was also found to have rising troponins. His troponins now are at 91 and still rising. The patient has received aggressive volume resuscitation overnight with close to 12 liters of fluids including blood products. His blood pressure has now stabilized. He is only on 1 pressor. He is sedated. Also, he has made approximately 50-60 mL of urine overnight. Review of the patient's home medications shows he was on metformin at home along with other medications. PAST MEDICAL HISTORY: As obtained from medical records is positive for diabetes. Based on his home medications, [place] [address] CONSULTATION Name: SAMIR BAIG Room: [address]#: [id number] Admission: 01/04/18 Attend Phys: Yuan Florian MD Discharge: 01/29/18 Date of : 60 Report #: [id number] bipolar disease also. FAMILY HISTORY: Apparently negative for premature cardiopulmonary disease. SOCIAL HISTORY: Light smoker in the past. No alcohol or illicit drug abuse reported. Urine drug screen was negative for opiates and methadone and cocaine, but was positive for amphetamines. He is on Adderall based on his home medications list. REVIEW OF SYSTEMS: Unobtainable from the patient at this moment. PHYSICAL EXAMINATION: VITAL SIGNS: He has been febrile overnight. T-max 38.6 this morning. He is intubated. He is sedated with fentanyl and Versed infusions. He is on Levophed. He is making around 50-60 mL of urine per hour. He is on the vent with 50% FiO2. His blood pressure at the time of my evaluation was in the 120s systolic. HEENT: He does appear deeply icteric. Has scleral icterus and cutaneous/skin pigmentation from jaundice, appears anemic. Mucous membranes are dry. LUNGS: Diminished bilaterally. GENITOURINARY: He has a scabbed over lesion on his right chest wall, which presumably was the site of the spider bite. He does appear warm and flushed. ABDOMEN: Soft, nontender. EXTREMITIES: Pulses are palpable bilaterally. Extremities are warm. No significant edema is noted. LABORATORY DATA: Most recent from this morning, white count is down to 17.9 thousand, hemoglobin is 6.2, up after transfusions , platelet count is 80,000 down from 423,000 on admission. The differential of his white count is 81% neutrophils, 4% bands, 12% lymphocytes and 1% eosinophils. Retic count is pending. Peripheral smear showed polychromasia with basophilic stippling. On admission as mentioned before, his pH was 6.9. After aggressive fluid resuscitation and bicarb infusions, pH this morning is 7.57, his pCO2 is 23.9, bicarbonate level is 20.8, pO2 was 149. This morning metabolic panel, sodium is 150, up from 133 on admission, potassium 2.7, chloride 114, bicarbonate is 25, BUN is 82, creatinine 2.3, slowly rising. Albumin is 2.4, phosphorus 0.5, being rechecked, calcium is 6.7. The labs suggest direct hyperbilirubinemia. His AST and ALT are both rising. His alkaline phosphatase level is actually improving. Lactate dehydrogenase level is 1639. Ammonia is 143, albumin 2.4. Amylase and lipase are normal. Lactic acid level on admission was 18.1, now down to 15.6, BUN is 82. Urinalysis shows brown urine with specific gravity of 1.020, 2+ protein, 1+ ketones, 3+ blood with 11-20 rbc's, rare wbc's and glucosuria. Hep A, hep B and hep C studies are negative. CT of the abdomen and pelvis on admission demonstrates right colon wall thickening with possible left colon wall thickening, possible suggestion of colitis. No [place] [address] CONSULTATION Name: SAMIR BAIG Room: [address] IN [facility]#: [id number] Admission: 01/04/18 Attend Phys: Yuan Florian MD Discharge: 01/29/18 Date of : 60 Report #: [id number] otherwise have been documented. CT of the chest without contrast shows mild bibasilar consolidations, but no adenopathy or infiltrates. Chest x-ray shows no acute process. CT of the head did not show any acute intracranial process. ASSESSMENT: The patient is a 57-year-old gentleman seen in the intensive care unit. He is critically sick. 1. Acute illness with hemodynamic collapse with a fairly rapid onset illness progressively worsening over the past 3-4 days. Exact etiology at this moment not known, though sepsis/septic shock remains high on the list. Other possibilities include toxin mediated disease either from insect/spider bite and are an acute infectious process secondary to the bite. 2. Acute kidney injury secondary to ischemic acute tubular necrosis from profound hemodynamic collapse. 3. Marked anemia, possibly suggestive of acute hemolysis. His coagulation profile is also abnormal. Fibrinogen levels are dropping with high suggestion for DIC like pathology. 4. Markedly elevated troponins suggestive of ST elevation myocardial infarction. 5. Acute confusional state secondary to the marked hemodynamic compromise. 6. Marked hyperbilirubinemia. 7. Initial anion gap metabolic acidosis, now with alkalosis, possibly respiratory and with bicarbonate supplementation. PLAN: 1. Acute kidney injury. The patient is nonoliguric, but with the profound hypotensive state, I anticipate his renal function will worsen over the next day or two. 2. Hopefully, the blood pressure will remain stable throughout the course of the day and he remains nonoliguric. 3. No indications for dialysis at this moment. 4. His acidosis has been corrected. Now, he is having rebound alkalosis, predominantly respiratory at this moment. His bicarbonate infusions have been stopped appropriately, but labs need to be closely monitored including ABGs every few hours. 5. He is developing hypernatremia from the aggressive isotonic fluid resuscitation. I recommended changing IV fluids to half normal saline. We will follow up with labs in the next few hours. 6. Acute hypophosphatemia. Recheck labs and supplement aggressively if needed. 7. Marked anemia suggestive of possible hemolysis. Workup is pending. The bilirubinemia is direct though. 8. Acute hepatic failure could definitely be ischemic from the profound hypotension. With the blood pressure stabilizing, I anticipate his liver function to improve and he does not go into hepatic failure. Thank you for allowing us to be part of care of the patient. He is critically [facility] [address] [place] [address] CONSULTATION Name: SAMIR BAIG Room: [address] IN M.R.#: [id number] Admission: 01/04/18 Attend Phys: Yuan Florian MD Discharge: 01/29/18 Date of : 60 Report #: [id number] sick. I spent 35 minutes with the patient, coordinating care, talking to the primary service and the nursing staff. <ELECTRONICALLY SIGNED> By: Raysa Martines MD 02/12/18 0857 0757 1701Raysa Martines MD /nt
--- NOTE | 2018-02-19 14:17 | CARDNUC ---
[place] [address] CARDIAC NUCLEAR IMAGING REPORT Name: SAMIR BAIG Room: [address] IN [facility]#: [id number] Admission: 01/04/18 Attend Phys: Yuan Florian, Discharge: 01/29/18 Date of : 60 Date of Service: 01/25/18 0955 Report #: [id number] THIS REPORT FOR: //name// Accession No. : [id number] Patient Name / ID : JOVANNI DAWSON S / [id number] Exam Date : 01/23/2018 00:00:00 ( Approved ) Study Comment : Sex / Age : M / 57Y Creator : Ronnie Villanueva MD Dictator : Vehicle Refinisher : Balance Sheet Analyst : Ronnie Villanueva MD Approver2 : Report Date : 01/25/2018 09:55:42 My Comment : APPROVED REPORT Patient Location: In-Patient Room #: 222 Stress Nurse: Myocardial perfusion scan Procedure: The patient was injected with 4.16 mCi of Ti-201 Valium. Myocardial perfusion images were obtained at 0, 4 and 24 hour intervals after an initial injection. Findings: There is a moderate size defect involving the apical anteroseptal wall and apex that shows no significant perfusion at rest, and or hours and at 24 hours. The defect appears essentially fixed. There does not appear to be any significant lesion reversible component to [place] [address] CARDIAC NUCLEAR IMAGING REPORT Name: SAMIR BAIG Room: [address] IN ..#: [id number] Admission: 01/04/18 Attend Phys: Yuan Florian, Discharge: 01/29/18 Date of : 60 Date of Service: 01/25/18 0955 Report #: [id number] This myocardial perfusion viability study shows a fixed anteroseptal and apical defect with no stability. By: 0955 1413 Ronnie Villanueva MD, FACC /JW
== END 2018-01-29 14:55 | DRG 870 ==
LOC: M.ERS 12:39 → M.TBA-ER 15:30 → M.ICU 15:30 → M.2W 01-20 16:30
PROVIDERS: Emergency Medicine Emergency Medical Services; Family Medicine; Internal Medicine; Internal Medicine Hematology & Oncology; Internal Medicine Infectious Disease; Internal Medicine Nephrology; Internal Medicine Pulmonary Disease; Specialist; ADMIT Internal Medicine
PROC: 02HV33Z Insertion of Infusion Device into Superior Vena Cava, Percutaneous Approach (ICD-10-PCS; principal; 2018-01-04)
PROC: 0BH17EZ Insertion of Endotracheal Airway into Trachea, Via Natural or Artificial Opening (ICD-10-PCS; principal; 2018-01-04)
PROC: 5A1955Z Respiratory Ventilation, Greater than 96 Consecutive Hours (ICD-10-PCS; principal; 2018-01-04)
PROC: 30243N1 Transfusion of Nonautologous Red Blood Cells into Central Vein, Percutaneous Approach (ICD-10-PCS; 2018-01-05)
PROC: 30243M1 Transfusion of Nonautologous Plasma Cryoprecipitate into Central Vein, Percutaneous Approach (ICD-10-PCS; 2018-01-06)
PROC: 5A1935Z Respiratory Ventilation, Less than 24 Consecutive Hours (ICD-10-PCS; 2018-01-09)
PROC: 5A1955Z Respiratory Ventilation, Greater than 96 Consecutive Hours (ICD-10-PCS; 2018-01-10)
PROC: 5A1935Z Respiratory Ventilation, Less than 24 Consecutive Hours (ICD-10-PCS; 2018-01-10)
PROC: 3E0436Z Introduction of Nutritional Substance into Central Vein, Percutaneous Approach (ICD-10-PCS; 2018-01-13)
PROC: 5A1935Z Respiratory Ventilation, Less than 24 Consecutive Hours (ICD-10-PCS; 2018-01-18)
PROC: 5A1935Z Respiratory Ventilation, Less than 24 Consecutive Hours (ICD-10-PCS; 2018-01-20)
PROC: 5A1935Z Respiratory Ventilation, Less than 24 Consecutive Hours (ICD-10-PCS; 2018-01-21)
DX: A41.9 Sepsis, unspecified organism (principal); R65.21 Severe sepsis with septic shock; N17.0 Acute kidney failure with tubular necrosis; G92 Toxic encephalopathy; I21.3 ST elevation (STEMI) myocardial infarction of unspecified site; D65 Disseminated intravascular coagulation [defibrination syndrome]; J69.0 Pneumonitis due to inhalation of food and vomit; I50.21 Acute systolic (congestive) heart failure; J96.20 Acute and chronic respiratory failure, unspecified whether with hypoxia or hypercapnia; E11.11 Type 2 diabetes mellitus with ketoacidosis with coma; I13.0 Hypertensive heart and chronic kidney disease with heart failure and stage 1 through stage 4 chronic kidney disease, or unspecified chronic kidney disease; I42.9 Cardiomyopathy, unspecified; F84.0 Autistic disorder; M62.82 Rhabdomyolysis; D58.9 Hereditary hemolytic anemia, unspecified; E87.1 Hypo-osmolality and hyponatremia; I47.2 Ventricular tachycardia; I96 Gangrene, not elsewhere classified; I75.021 Atheroembolism of right lower extremity; E44.0 Moderate protein-calorie malnutrition; K52.9 Noninfective gastroenteritis and colitis, unspecified; N18.3 Chronic kidney disease, stage 3 (moderate); I34.0 Nonrheumatic mitral (valve) insufficiency; E11.22 Type 2 diabetes mellitus with diabetic chronic kidney disease; E11.649 Type 2 diabetes mellitus with hypoglycemia without coma; G47.33 Obstructive sleep apnea (adult) (pediatric); F31.9 Bipolar disorder, unspecified; E11.65 Type 2 diabetes mellitus with hyperglycemia; D58.0 Hereditary spherocytosis; F90.9 Attention-deficit hyperactivity disorder, unspecified type; E87.6 Hypokalemia; E11.51 Type 2 diabetes mellitus with diabetic peripheral angiopathy without gangrene; K72.90 Hepatic failure, unspecified without coma; E80.6 Other disorders of bilirubin metabolism; I48.91 Unspecified atrial fibrillation; Z79.01 Long term (current) use of anticoagulants; Z88.6 Allergy status to analgesic agent; Z88.0 Allergy status to penicillin; Z68.33 Body mass index [BMI] 33.0-33.9, adult; Z79.2 Long term (current) use of antibiotics; Z79.82 Long term (current) use of aspirin; Z79.899 Other long term (current) drug therapy